=== PATIENT | female | born 1980 | race Caucasian/White ===

== ENCOUNTER 2019-12-30 06:30 | Emergency (ER) | payer OTHER ==
[~2019-12-30] VITALS: Ht 162.6 cm; Wt 81.7 kg
--- OUTSIDE RECORDS SUMMARY | ~2019-12-30 | XMS | Encounter Summary ---
Demographics + + + | Address | [address] | | | [place] [address] | + + + | Home Phone | | + + + | Preferred Language | Unknown | + + + | Marital Status | | + + + | Muslim Affiliation | Unknown | + + + | Race | White | + + + | Ethnic Group | Not or | + + + Author + + + | Author | [facility] | | | and [place] | + + + | Organization | [facility] | | | and [place] | + + + | Address | Unknown | + + + | Phone | Unavailable | + + + Support + + + + + | Name | Relationship | Address | Phone | + + + + + | Huan/Ibeth Bradshaw | ECON | [address] | | | | | [place], | | | | | [place] [address] | | + + + + + Care Team Providers + +------+ + | Care Rope Tier Name | Role | Phone | + +------+ + PCP | Unavailable | + +------+ + Encounter Details +--------+ + + + + | Date | Type | Department | Care Team | Description | +--------+ + + + + | 09/07/ | Hospital | [facility] | | | | 2001 - | Encounter | MED [facility] | | | | | | [facility] [address] | | | | 09/08/ | | [place], | | | | 2001 | | [place] [address] | | | | | | [phone] | | | +--------+ + + + + Social History + +-------+ +--------+------+ | Tobacco Use | Types | Packs/Day | Years | Date | | | | | Used | | + +-------+ +--------+------+ | Never Assessed | | | | | + +-------+ +--------+------+ + + + | Sex Assigned at | Date Recorded | | | | + + + | Not on file | | + + + documented as of this encounter Plan of Treatment Not on filedocumented as of this encounter Visit Diagnoses Not on filedocumented in this encounter"
--- OUTSIDE RECORDS SUMMARY | ~2019-12-30 | XMS | Encounter Summary ---
Demographics + + + | Address | [address] | | | [place] [address] | + + + | Home Phone | | + + + | Preferred Language | Unknown | + + + | Marital Status | | + + + | Catholic Affiliation | Unknown | + + + | Race | White | + + + | Ethnic Group | Not or | + + + Author + + + | Author | [facility] | | | and [place] | + + + | Organization | [facility] | | | and [...] [place], | | | | | [place] [address] | | + + + + + Care Team Providers + +------+ + | Care Wedding Coordinator Name | Role | Phone | + +------+ + | No, Physician | PCP | Unavailable | + +------+ + Encounter Details +--------+ + + + + | Date | Type | Department | Care Team | Description | +--------+ + + + + | 03/21/ | Hospital | [facility] | Simi Becerra | | | 2012 | Encounter | MED CTR EMERGENCY | DO [place] [address] | | | | | CENTER [address] | [place], [place] | | | | | [place], [place] | [address] | | | | | [address] | | | | | | [phone] | | | +--------+ + + + + Social History + +-------+ +--------+------+ | Tobacco Use | Types | Packs/Day | Years | Date | | | | | Used | | + +-------+ +--------+------+ | Never Smoker | | | | | + +-------+ +--------+------+ + + +---------+ + | Alcohol Use | Drinks/Week | oz/Week | Comments | + + +---------+ + | Not Asked | | | | + + +---------+ + + + + | Sex Assigned at | Date Recorded | | | | + + + | Not on file | | + + + documented as of this encounter Medications at Time of Discharge + + + +---------+--------+ + | Medication | Sig | Dispensed | Refills | Start | End Date | | | | | | Date | | + + + +---------+--------+ + | ARIPiprazole | Take 7.5 mg by mouth | | 0 | | | | (ABILIFY) 2 mg | Daily. | | | | | | tablet | | | | | | + + + +---------+--------+ + | cyclobenzaprine | Take 5 mg by mouth 3 | | 0 | | | | (FLEXERIL) 5 MG | times daily as | | | | 6 | | tablet | needed. | | | | | + + + +---------+--------+ + | | Take 1 tablet by | | 0 | | | | HYDROcodone-acetamin | mouth every 6 hours | | | | 6 | | ophen (NORCO) 5-325 | as needed. | | | | | | mg per tablet | | | | | | + + + +---------+--------+ + | Ketorolac | Take 1 tablet by | | 0 | | | | Tromethamine | mouth 4 times daily | | | | 6 | | (TORADOL ORAL PO) | as needed. | | | | | + + + +---------+--------+ + documented as of this encounter ED Notes Simi Becerra MD - 04/09/2013 2:39 PM [facility] [address] Patient Name: ASTRID SORENSEN Provider: Unit #: [id number] [id number] 1980 DATE: 03/21/2013 CHIEF COMPLAINT: The patient is a 32-year-old female that comes in with chief complaint of back pain. HISTORY OF PRESENT ILLNESS: The patient states that she slipped and fell in the shower tod , about 5 hours prior to arrival, and now she is having some low back pain. The patient states that it is a sharp type of pain. She has had no bowel dysfunction, no bladder dysfunction. There is no radiation into her l egs. She has no sensation or motor loss. She states that it is at the worst when she is laying flat, it feels a little bit better w hen she is standing, and it also hurts a little bit when she sits and goes to a standing po sition. REVIEW OF SYSTEMS: She is denying any trouble with urination or frequency of urination, no blood in the urine. She has had no headache, sore throat, cough, trouble breathing, or vicente st pain, and no abdominal type complaints. She had a history of some back pain about a year ago, and her x-rays at that time were negative. PAST MEDICAL HISTORY: The patient has a history of an ectopic , tubal ligation, a nd anxiety. MEDICATIONS: The patient currently is taking - 1. Ambien. 2. Effexor. 3. Aricept. ALLERGIES: SHE HAS NO KNOWN DRUG ALLERGIES. SOCIAL HISTORY: She denies any history of smoking, drugs, or alcohol use. PHYSICAL EXAMINATION VITAL SIGNS: The patient's vital signs are stable. Her temperature is 98.2, respiratory ra te 16, heart rate 70, blood pressure 101/74, and she is 96% on room air. GENERAL: The patient is alert. She appears to be in no acute distress. NECK: Normal on inspection. RESPIRATORY: She has no respiratory distress and breath sounds are normal. CARDIOVASCULAR: She is regular rate and rhythm. BACK: The patient is complaining of tenderness in the lumbar spine region, mostly in the paravertebrals. There is no bony point tenderness. She has a little bit of muscle spasm. Str aight leg raise is negative bilaterally. NEUROPSYCH: She is alert and oriented. Mood and affect within normal limits. She has no ap parent motor or sensory deficits. Her strength is 5/5 in the bilateral flexors and extensor s of lower extremities, and her reflexes are normal. EMERGENCY ROOM COURSE: She did have an L-spine x-ray that showed no acute process. She did receive a Dilaudid and Phenergan injection while here in the emergency department. DIAGNOSIS THE PATIENT IS DIAGNOSED WITH LUMBAR STRAIN. PLAN: She is given a prescription for some pain medication and muscle relaxers. The patien t should alternate ice and heat, and do gentle stretching exercises, and followup with her primary care provider. DICTATED BY: [place] Becerra DO Emergency Medicine JOB #: [id number] EXT JOB #:[id number] <<Signature on File>> Jefferson Wagner O106/22/12 1522 < documented in this encounter Plan of Treatment Not on filedocumented as of this encounter Procedures + +--------+ + + + | Procedure Name | Priori | Date/Time | Associated Diagnosis | Comments | | | ty | | | | + +--------+ + + + | XR LUMBAR SPINE 2 OR | Routin | 03/22/2013 | | Results for this | | 3 VW | e | 9:00 AM | | procedure are in the | | | | PST | | results section. | + +--------+ + + + documented in this encounter Results XR Lumbar Spine 2 or 3 Vw (03/22/2013 9:00 AM PST) + + | Specimen | + + | | + + + + + | Narrative | Performed At | + + + | [facility] | [facility] | | Department [address] [place] [address] | [facility] | | [ rep [address]] [ rep ct [facility] | | st zip] Signed | - IMAGING | | | | | Patient Name: ASTRID SORENSEN Physician: | | | WESLEY : 1980 Age: 32 Sex: F Unit #: [id number] | | | Exam Date: 03/21/13 Location: ER | | | Report #: [id number] Page: | | | %(RAD)RES..mtdd.print.filter("pg") of %(RAD) | | | RES..mtdd.print.filter("tpg") | | | | | | Accession Number: [id number] | | | LUMBAR SPINE CLINICAL HISTORY: FALL. | | | COMPARISON: December 14, 2011 FINDINGS: There are 5 | | | lumbar-type vertebral bodies. Alignment is normal. Vertebral body | | | heights are normally maintained. There is no fracture or focal | | | bony abnormality. No degenerative changes are seen. Adjacent | | | soft tissues are normal. IMPRESSION: 1. NEGATIVE | | | STUDY OF THE LUMBAR SPINE. Dictated Date/Time: | | | 03/22/2013 09:00 Transcribed Date/Time: 03/22/2013 09:41 | | | Gum Puller: <<Signature on File>> | | | | | | Rene Feldman MD03/22/13 1312 <Electronically signed by | | | Rene Feldman MD> Rene Feldman MD 03/22/13 | | | 0900 Gum Puller: Floyd Wrpffyqtzdbqd24/19/13 0941 | | | | | + + + + + + + + | Performing | Address | City/State[facility] | Phone Number | | Organization | | | | + + + + + | [facility] | [address] | [place] | [phone] | | [facility] | | [address] | | | - IMAGING | | | | + + + + + documented in this encounter Visit Diagnoses Not on filedocumented in this encounter
--- OUTSIDE RECORDS SUMMARY | ~2019-12-30 | XMS | Encounter Summary ---
Demographics + + + | Address | [address] | | | [place] [address] | + + + | Home Phone | | + + + | Preferred Language | Unknown | + + + | Marital Status | | + + + | Mu-Ism Affiliation | Unknown | + + + | Race | White | + + + | Ethnic Group | Not or | + + + Author + + + | Author | [facility] | | | and [place] | + + + | Organization | [facility] | | | and [...] [place], | | | | | [place] [address] | | + + + + + Care Team Providers + +------+ + | Care Web Site Manager Name | Role | Phone | + +------+ + | Fanta Jose | PCP | | + +------+ + Reason for Visit + + + | Reason | Comments | + + + | Arm Pain | Exam 4/ right arm pain x2 days | + + + Encounter Details +--------+---------+ + + + | Date | Type | Department | Care Team | Description | +--------+---------+ + + + | 12/28/ | Office | [facility] | Sathish, | Muscle spasms of | | 2020 | Visit | CARE [address] | [place] | neck (Primary Dx) | | | | [place], [place] | [address] | | | | | [address] | [place], [place] | | | | | [phone] | [phone] | | | | | | | | +--------+---------+ + + + Social History + +-------+ +--------+------+ | Tobacco Use | Types | Packs/Day | Years | Date | | | | | Used | | + +-------+ +--------+------+ | Never Smoker | | | | | + +-------+ +--------+------+ + +---+---+---+ | Smokeless Tobacco: | | | | | Never Used | | | | + +---+---+---+ + + +---------+ + | Alcohol Use | Drinks/Week | oz/Week | Comments | + + +---------+ + | No | | | | + + +---------+ + + + + | Sex Assigned at | Date Recorded | | | | + + + | Not on file | | + + + documented as of this encounter Last Filed Vital Signs + + + + + | Vital Sign | Reading | Time Taken | Comments | + + + + + | Blood Pressure | 116/69 | 12/29/2019 5:31 PM | | | | | PDT | | + + + + + | Pulse | 57 | 12/29/2019 5:31 PM | | | | | PDT | | + + + + + | Temperature | 36.8 C (98.2 F) | 12/29/2019 5:31 PM | | | | | PDT | | + + + + + | Respiratory Rate | 16 | 12/29/2019 5:31 PM | | | | | PDT | | + + + + + | Oxygen Saturation | 98% | 12/29/2019 5:31 PM | | | | | PDT | | + + + + + | Inhaled Oxygen | - | - | | | Concentration | | | | + + + + + | Weight | 83.1 kg (183 lb 3.2 | 12/29/2019 5:31 PM | | | | oz) | PDT | | + + + + + | Height | 162.6 cm (5' 4") | 12/29/2019 5:31 PM | | | | | PDT | | + + + + + | Body Mass Index | 31.45 | 12/29/2019 5:31 PM | | | | | PDT | | + + + + + documented in this encounter Patient Instructions Patient Instructions Kisha Bower ARNP - 12/29/2019 4:15 PM PDT Neck Spasm A spasm of the neck muscles can happen after a sudden awkward neck movement. Sleeping with your neck in a crooked position can also cause spasm. Some people respond to emotional stres s by tensing the muscles of their neck, shoulders, and upper back. If neck spasm lasts long enough, it can cause a headache. The treatment described below will usually help the pain to go away in 5 to 7 days. Pain th at continues may need further evaluation or other types of treatment such as physical therap y. Home care Rest and relax the muscles. Use a comfortable pillow that supports the head and keeps th e spine in a neutral position. The position of the head should not be tilted forward or back boyce. A rolled up towel may help for a custom fit. Some people find relief with heat. Heat can be applied with either a warm shower or bath or a moist towel heated in the microwave and massage. Others prefer cold packs. You can porter e an ice pack by filling a plastic bag that seals at the top with ice cubes or crushed ice a nd then wrapping it with a thin towel. Try both and use the method that feels best for 15 to 20 minutes, several times a day. Whether using ice or heat, be careful that you don't injure your skin. Never put ice dir ectly on the skin. Always wrap the ice in a towel or other type of cloth. This is very impor tant, especially in people with poor skin sensation. Try to reduce your stress level. Emotional stress can lead to neck muscle tension and ge t in the way of or delay the healing process. You may use zdhr-dos-plvhsmx pain medicine to control pain, unless another medicine was prescribed. If you have chronic liver or kidney disease or ever had a stomach ulcer or gastr ointestinal bleeding, talk with your healthcare provider before using these medicines. Follow-up care Follow up with your healthcare provider if your symptoms don't show signs of improvement af ter one week. Physical therapy or further tests may be needed. If X-rays, CT scans, or MRI scans were taken, you will be told of any new findings that may affect your care. Call 911 Call 911 if you have: Sudden weakness or numbness in one or both arms or legs Neck swelling, trouble with or painful swallowing Trouble breathing Chest pain When to seek medical advice Call your healthcare provider right away if any of these occur: Pain becomes worse or spreads into one or both arms or legs Increasing headache with nausea or vomiting Fever of 100.4F (38C) or higher, or as directed by your healthcare provider Jodee Wong last reviewed this educational content on 09/01/201719996673-2030 [employer]. [address] [place] [address], [place] [address]. All righ ts reserved. This information is not intended as a substitute for professional medical care. Always follow your healthcare professional's instructions. documented in this encounter Progress Notes Kisha Bower ARNP - 12/29/2019 4:15 PM PDTFormatting of this note might be d ifferent from the original. Subjective: Patient ID: Astrid Sorensen is a 39 y.o. female. Chief Complaint Patient presents with Arm Pain Exam 4/ right arm pain x2 days HPI Pt here for rt arm pain. Pt is of all prescription medications since May wanted to reset her body- PCP aware. Rt arm pain started 2 days ago. She works at [employer] in the [employer] and works the [employer], no more work then normal. Pt had this same pain once in the past in both arms and treate d with itz wraps in 2018 and gone until now. No neck pain or injuries. Pain feels like it is shooting up the arm from thumb and long finger into the shoulder blades. Pain level last ni ght 10/10-wakes her every couple hours last night and the night prior 2X. Pain level 6-7/10. Hot water helps. Pt has no N/T in thumb and LF only burning pain. N/T in 2nd, 4th and 5th f ingers when the burning occurs. Yesterday off and on and today continuous. Heat helps. Pt metzger s motrin and took 1200 mg once today, no help with pain. Ice isn't helping. No pain with mov ing hand and arm. Pt has weakness, can't write for more then 20 seconds because pain. Past Medical History: Diagnosis Date Anxiety Bipolar 1 disorder (HCC) Bipolar affective (HCC) Pilonidal abscess I PTSD (post-traumatic stress disorder) Past Surgical History: Procedure Laterality Date ECTOPIC SURGERY 2003 ECTOPIC SURGERY NASAL SEPTUM SURGERY NOSE SURGERY 2003 TUBAL LIGATION 2001 TUBAL LIGATION History reviewed. No pertinent family history. Social History Socioeconomic History Marital status: Spouse name: Not on file Number of children: Not on file Years of education: Not on file Highest education level: Not on file Tobacco Use Smoking status: Never Smoker Smokeless tobacco: Never Used Substance and Sexual Activity Alcohol use: No Drug use: No Comment: Drug use: No Current Outpatient Medications Medication Sig Dispense Refill ARIPiprazole (ABILIFY) 2 mg tablet Take 7.5 mg by mouth Daily. fluticasone (FLONASE) 50 mcg/nasal spray 1 spray by Nasal route Daily. HYDROcodone-acetaminophen (NORCO) 5-325 mg per tablet Take 1 tablet by mouth every 6 ho urs as needed. (Patient not taking: Reported on 12/29/2019.) 10 tablet 0 ibuprofen (ADVIL,MOTRIN) 600 MG tablet Take 600 mg by mouth every 6 hours as needed for Pain. Loratadine 10 MG CAPS Take by mouth. ondansetron (ZOFRAN ODT) 4 mg disintegrating tablet Take 1 tablet by mouth every 6 hour s as needed for Nausea. (Patient not taking: Reported on 12/29/2019.) 10 tablet 0 prazosin (MINIPRESS) 5 mg capsule Take 6 mg by mouth nightly. venlafaxine (EFFEXOR XR) 225 mg ER tablet Take 225 mg by mouth daily (with breakfast). No current facility-administered medications for this visit. Allergies No active allergies Intolerance No active intolerances/contraindications Review of Systems Constitutional: Negative for fever. Musculoskeletal: Positive for back pain. Negative for neck pain. Chronic low back pain stable. Neurological: Positive for tingling and sensory change. Negative for dizziness, weakness an d headaches. Objective: BP 116/69 | Pulse 57 | Temp 36.8 C (98.2 F) (Temporal) | Resp 16 | Ht 1.626 m (5' 4 ") | Wt 83.1 kg (183 lb 3.2 oz) | SpO2 98% | No | BMI 31.45 kg/m BP Readings from Last 3 Encounters: 12/29/19 116/69 04/19/19 90/60 07/31/15 129/70 Physical Exam Musculoskeletal: Comments: Right hand strength and arm strength intact. CSM intact. Motions intact With trigger point pressure on her right trap the numbness pain is relieved in her arm. Tr apezius tight bilaterally. Neck range of motion intact with tension but no pain. Get of loading for any increased numbness tingling or pain. No results found for this or any previous visit (from the past 24 hour(s)). Assessment/Plan: 1. Muscle spasms of neck Patient declined any medication. Patient may take motrin 400-800 mg orally every 6-8 hours as needed for pain. Take with fo od and stop if any GI upset occurs. Do not exceed 3,200mg in 24 hours. Heat and massage recommended. Physical therapy recommended and patient is interested [facility] she will need to see her PCP and have it ordered through them. Patient to avoid repetitive motions with her shoulders and neck the next 2 days. Ental range of motion of shoulder and neck to loosen the tension. doирина koch in this encounter Plan of Treatment Not on filedocumented as of this encounter Visit Diagnoses + + | Diagnosis | + + | Muscle spasms of neck - Primary Spasm of muscle | + + documented in this encounter
--- OUTSIDE RECORDS SUMMARY | ~2019-12-30 | XMS | Encounter Summary ---
Demographics + + + | Address | [address] | | | [place] [address] | + + + | Home Phone | | + + + | Preferred Language | Unknown | + + + | Marital Status | | + + + | Restorationism Affiliation | Unknown | + + + | Race | White | + + + | Ethnic Group | Not or | + + + Author + + + | Author | [facility] | | | and [place] | + + + | Organization | [facility] | | | [...] [place], | | | | | [place] [address] | | + + + + + Care Team Providers + +------+ + | Care Mill Tender Warm Up Name | Role | Phone | + +------+ + PCP | Unavailable | + +------+ + Encounter Details +--------+ + + + + | Date | Type | Department | Care Team | Description | +--------+ + + + + | 02/23/ | Hospital | [facility] | | | | 2002 | Encounter | MED CTR XRAY [address] | | | | | | [place] | | | | | | [place] [address] | | | | | | [phone] | | | +--------+ + + + [...]
--- OUTSIDE RECORDS SUMMARY | ~2019-12-30 | XMS | Encounter Summary ---
Demographics + + + | Address | [address] | | | [place] [address] | + + + | Home Phone | | + + + | Preferred Language | Unknown | + + + | Marital Status | | + + + | Restoration Affiliation | Unknown | + + + | Race | White | + + + | Ethnic Group | Not or | + + + Author + + + | Author | [facility] | | | and [place] | + + + | Organization | [facility] | | | and [place] | + + + | Address | Unknown | + + + | Phone | Unavailable | + + + Support + + + + + | Name | Relationship | Address | Phone | + + + + + | Huan/Ibeth Bradshaw | ECON | [address] | | | | | [place], | | | | | [place] [address] | | + + + + + Care Team Providers + +------+ + | Care Senior Auditor Name | Role | Phone | + +------+ + | No, Physician | PCP | Unavailable | + +------+ + Reason for Visit + + + | Reason | Comments | + + + | Follow-up | Rm 2 x [place] inj 10-20-12 follow up on back inj | + + + Encounter Details +--------+---------+ + + + | Date | Type | Department | Care Team | Description | +--------+---------+ + + + | 10/21/ | Office | [facility] | Dane, Mariela | Lumbosacral strain | | 2012 | Visit | CARE [address] | [place] [address] | (Primary Dx); Place | | | | [place], [place] | [address] | of occurrence, | | | | [address] | [place] [address] | industrial places | | | | [phone] | [phone] | and premises; | | | | | | Civilian activity | | | | | | done for income or | | | | | | pay; Injury caused | | | | | | by bending | +--------+---------+ + + + Social History [...] + + + | Blood Pressure | 90/70 | 10/21/2012 11:10 AM | | | | | PDT | | + + + + + | Pulse | 55 | 10/21/2012 11:10 AM | | | | | PDT | | + + + + + | Temperature | 36.9 C (98.5 F) | 10/21/2012 11:10 AM | | | | | PDT | | + + + + + | Respiratory Rate | 18 | 10/21/2012 11:10 AM | | | | | PDT | | + + + + + | Oxygen Saturation | 98% | 10/21/2012 11:10 AM | | | | | PDT | | + + + + + | Inhaled Oxygen | - | - | | | Concentration | | | | + + + + + | Weight | 79.4 kg (175 lb) | 10/21/2012 11:10 AM | | | | | PDT | | + + + + + | Height | 162.6 cm (5' 4") | 10/21/2012 11:10 AM | | | | | PDT | | + + + + + | Body Mass Index | 30.04 | 10/21/2012 11:10 AM | | | | | PDT | | + + + + + documented in this encounter Progress Mariela Frank MD - 10/21/2012 12:02 PM PDTSee dictation #[id number] cony d by Mariela Vela MD at 10/21/2012 12:03 PM PDTdocumented in this encounter Miscellaneous Notes Plan of Care - HILDA XAVIERAL - 10/21/2012 12:00 AM PDT documented in this encounter Plan of Treatment Not on filedocumented as of this encounter Visit Diagnoses + + | Diagnosis | + + | Lumbosacral strain - Primary Sprain of lumbosacral (joint) (ligament) | + + | Place of occurrence, industrial places and premises | + + | Civilian activity done for income or pay | + + | Injury caused by bending Other overexertion and strenuous and repetitive movements or | | loads | + + documented in this encounter
--- OUTSIDE RECORDS SUMMARY | ~2019-12-30 | XMS | Encounter Summary ---
Demographics + + + | Address | [address] | | | [place] [address] | + + + | Home Phone | | + + + | Preferred Language | Unknown | + + + | Marital Status | | + + + | Latter-Day Affiliation | Unknown | + + + | Race | White | + + + | Ethnic Group | Not or | + + + Author + + + | Author | [facility] | | | and [place] | + + + | Organization | [facility] | | | and [...] [place], | | | | | [place] [address] | | + + + + + Care Team Providers + +------+ + | Care Room Service Clerk Name | Role | Phone | + +------+ + | No, Physician | PCP | Unavailable | + +------+ + Encounter Details +--------+ + + + + | Date | Type | Department | Care Team | Description | +--------+ + + + + | 11/22/ | Hospital | [facility] | [place], | | | 2012 | Encounter | MED [facility] EM[facility] | Figueroa Richard MD [address] | | | | [address] [address] | [address] | | | | | [place], [place] | [place] [address] | | | | | [address] | [phone] | | | | | [phone] | | | +--------+ + + + [...] documented as of this encounter ED Notes Figueroa Cerrato MD - 11/22/2012 1:55 [place] [address] Patient Name: ASTRID SORENSEN Provider: Unit #: [id number] Location: ER : 1980 DATE: 11/22/2012 TIME SEEN: 1017 hours. CHIEF COMPLAINT: Depression. PRIMARY CARE PHYSICIAN: [facility]. HISTORY OF PRESENT ILLNESS: This is a 32-year-old female who was feeling depressed. She "t ried to play chicken with a tractor and a semi this morning". She states she is depressed. She has had some suicidal thoughts. She denies any ingestions of drugs or alcohol. Denies a ny overdoses. She is here with her mother who is a support to her and is seeking help. She was brought in by paramedics. PAST MEDICAL HISTORY: Back pain, PTSD, bipolar disorder, previous suicide attempts with on going depression. MEDICATIONS: Her current medications are: 1. Abilify. 2. Vitamin D. 3. Clonidine. 4. Ketorolac. 5. Perphenazine. 6. Effexor. ALLERGIES: NONE. REVIEW OF SYSTEMS: A 10-system review is negative except as noted above. SOCIAL HISTORY: Nonsmoker. PHYSICAL EXAMINATION VITAL SIGNS: Blood pressure 124/88, heart rate 94, respirations 18, temperature 98.1, O2 s aturation 96 %. GENERAL APPEARANCE: A well-appearing female, sitting up, speaking normally. HEENT: Atraumatic. Oropharynx is benign. NECK: Supple. CHEST: Clear to auscultation bilaterally without wheezes or crackles. CARDIOVASCULAR: Normal S1, S2. ABDOMEN: Soft, nontender. BACK: No flank pain. EXTREMITIES: Atraumatic. NEUROLOGIC: Alert and oriented. Gait and speech are normal. EMERGENCY DEPARTMENT COURSE: We did go ahead and send standard ER psych panel labs on her, which is completely unremarkable with negative alcohol, salicylate, and acetaminophen, neg ative drug screen, and negative . COMPUTATIONAL SCIENTIST came to evaluate the patient here and they h ave worked out a safety plan with her. The patient is going to go home with her mother. The y are going to actually work on getting a restraining order against her boyfriend who is ca using some stress. They have an appointment for mental health followup at the [facility] tomorrow. The patient will be with her mother between now and then. IMPRESSION: DEPRESSION WITH SUICIDAL IDEATION. DICTATED BY: Figueroa Cerrato MD Emergency Medicine JOB #: [id number] EXT JOB #:[id number] <<Signature on File>> Figueroa gong MD11/24/122107 <Electronically signed by Figueroa Cerrato MD> documented in t his encounter Plan of Treatment Not on filedocumented as of this encounter Procedures + +--------+ + + + | Procedure Name | Priori | Date/Time | Associated Diagnosis | Comments | | | ty | | | | + +--------+ + + + | CBC WITH | Routin | 11/22/2012 | | Results for this | | DIFFERENTIAL | e | 10:54 AM | | procedure are in the | | | | PDT | | results section. | + +--------+ + + + | TSH | Routin | 11/22/2012 | | Results for this | | | e | 10:54 AM | | procedure are in the | | | | PDT | | results section. | + +--------+ + + + | ALCOHOL | Routin | 11/22/2012 | | Results for this | | | e | 10:54 AM | | procedure are in the | | | | PDT | | results section. | + +--------+ + + + | ACETAMINOPHEN LEVEL | Routin | 11/22/2012 | | Results for this | | | e | 10:54 AM | | procedure are in the | | | | PDT | | results section. | + +--------+ + + + | SALICYLATE LEVEL | Routin | 11/22/2012 | | Results for this | | | e | 10:54 AM | | procedure are in the | | | | PDT | | results section. | + +--------+ + + + | COMPREHENSIVE | Routin | 11/22/2012 | | Results for this | | METABOLIC PANEL | e | 10:54 AM | | procedure are in the | | | | PDT | | results section. | + +--------+ + + + | DRUGS OF ABUSE, | Routin | 11/22/2012 | | Results for this | | SCREEN, URINE | e | 10:26 AM | | procedure are in the | | | | PDT | | results section. | + +--------+ + + + documented in this encounter Results CBC with Differential (11/22/2012 10:54 AM PDT) + + + + + + | Component | Value | Ref Range | Performed | Pathologist | | | | | At | Signature | + + + + + + | MANUAL | NO | | [facility] | | | DIFFERENTIA | | | [facility] | | | L ? | | | MEDICAL | | | | | | CENTER - | | | | | | LABORATORY | | + + + + + + | White Blood | 7.2 | 4.0 - 11.0 K/uL | [facility] | | | Cells | | | [facility] | | | | | | MEDICAL | | | | | | CENTER - | | | | | | LABORATORY | | + + + + + + | Red Blood | 4.85 | 3.70 - 5.20 | [facility] | | | Cells | | M/uL | [facility] | | | | | | MEDICAL | | | | | | CENTER - | | | | | | LABORATORY | | + + + + + + | Hemoglobin | 14.7 | 11.5 - 16.0 | [facility] | | | | | gm/dL | [facility] | | | | | | MEDICAL | | | | | | CENTER - | | | | | | LABORATORY | | + + + + + + | Hematocrit | 44.6 | 34.0 - 47.0 % | [facility] | | | | | | [facility] | | | | | | MEDICAL | | | | | | CENTER - | | | | | | LABORATORY | | + + + + + + | MCV | 91.9 | 83.0 - 101.0 fL | [facility] | | | | | | [facility] | | | | | | MEDICAL | | | | | | CENTER - | | | | | | LABORATORY | | + + + + + + | MCH | 30.2 | 28.0 - 35.0 pg | [facility] | | | | | | [facility] | | | | | | MEDICAL | | | | | | CENTER - | | | | | | LABORATORY | | + + + + + + | MCHC | 32.8 | 32.0 - 36.0 | [facility] | | | | | g/dL | [facility] | | | | | | MEDICAL | | | | | | CENTER - | | | | | | LABORATORY | | + + + + + + | RDW-CV | 12.9 | <15.0 % | [facility] | | | | | | [facility] | | | | | | MEDICAL | | | | | | CENTER - | | | | | | LABORATORY | | + + + + + + | Platelet | 235 | 140 - 440 K/uL | [facility] | | | Count | | | [facility] | | | | | | MEDICAL | | | | | | CENTER - | | | | | | LABORATORY | | + + + + + + | % | 69.7 | 45 - 75 % | [facility] | | | Neutrophils | | | [facility] | | | | | | MEDICAL | | | | | | CENTER - | | | | | | LABORATORY | | + + + + + + | % | 19.1 (L) | 20 - 45 % | [facility] | | | Lymphocytes | | | [facility] | | | | | | MEDICAL | | | | | | CENTER - | | | | | | LABORATORY | | + + + + + + | % Monocytes | 8.5 | 4 - 12 % | [facility] | | | | | | [facility] | | | | | | MEDICAL | | | | | | CENTER - | | | | | | LABORATORY | | + + + + + + | % | 1.5 | 0 - 5 % | [facility] | | | Eosinophils | | | [facility] | | | | | | MEDICAL | | | | | | CENTER - | | | | | | LABORATORY | | + + + + + + | % Basophils | 1.2 (H) | 0 - 1 % | [facility] | | | | | | [facility] | | | | | | MEDICAL | | | | | | CENTER - | | | | | | LABORATORY | | + + + + + + | Absolute | 5.0 | 1.5 - 6.6 K/uL | [facility] | | | Neutrophils | | | [facility] | | | | | | MEDICAL | | | | | | CENTER - | | | | | | LABORATORY | | + + + + + + | Absolute | 1.4 | 0.6 - 3.2 K/uL | [facility] | | | Lymphocytes | | | [facility] | | | | | | MEDICAL | | | | | | CENTER - | | | | | | LABORATORY | | + + + + + + | Absolute | 0.6 | 0.0 - 1.0 K/uL | [facility] | | | Monocytes | | | [facility] | | | | | | MEDICAL | | | | | | CENTER - | | | | | | LABORATORY | | + + + + + + | Absolute | 0.1 | 0.0 - 0.4 K/uL | [facility] | | | Eosinophils | | | [facility] | | | | | | MEDICAL | | | | | | CENTER - | | | | | | LABORATORY | | + + + + + + | Absolute | 0.1 | 0.0 - 0.1 K/uL | [facility] | | | Basophils | | | [facility] | | | | | | MEDICAL | | | | | | CENTER - | | | | | | LABORATORY | | + + + + + + + + | Specimen | + + | | + + + + + + + | Performing | Address | City/State/Zipcode | Phone Number | | Organization | | | | + + + + + | [facility] | [address] | [place], [place] | [phone] | | [facility] | | [address] | | | - LABORATORY | | | | + + + + + | [facility] | [address] | [place], [place] | | | [facility] | | [address] [place] [address] | | | - LABORATORY | | | | + + + + + TSH (11/22/2012 10:54 AM PDT) + + + + + + | Component | Value | Ref Range | Performed | Pathologist | | | | | At | Signature | + + + + + + | TSH | 1.24Comment: Testing | 0.34 - 5.60 | [facility] | | | | performed on the Cruz | uIU/mL | [facility] | | | | [place] [facility] | | MEDICAL | | | | Analyzer. | | CENTER - | | | | | | LABORATORY | | + + + + + + + + | Specimen | + + | | + + + + + + + | Performing | Address | City/State/Zipcode | Phone Number | | Organization | | | | + + + + + | [facility] | [address] | [place] | [phone] | | [facility] | | [address] | | | - LABORATORY | | | | + + + + + | [facility] | [address] | [place], [place] | | | [facility] | | [address], [facility] | | | - LABORATORY | | | | + + + + + Comprehensive Metabolic Panel (11/22/2012 10:54 AM PDT) + + + + + + | Component | Value | Ref Range | Performed | Pathologist | | | | | At | Signature | + + + + + + | Glucose | 93 | 70 - 109 mg/dL | [facility] | | | | | | [facility] | | | | | | MEDICAL | | | | | | CENTER - | | | | | | LABORATORY | | + + + + + + | Calcium | 9.0 | 8.3 - 10.5 | [facility] | | | | | mg/dL | [facility] | | | | | | MEDICAL | | | | | | CENTER - | | | | | | LABORATORY | | + + + + + + | Alkaline | 60 | 40 - 110 IU/L | [facility] | | | Phosphatase | | | [facility] | | | | | | MEDICAL | | | | | | CENTER - | | | | | | LABORATORY | | + + + + + + | AST | 24 | 10 - 42 IU/L | [facility] | | | | | | [facility] | | | | | | MEDICAL | | | | | | CENTER - | | | | | | LABORATORY | | + + + + + + | ALT | 27 | 6 - 45 IU/L | [facility] | | | | | | [facility] | | | | | | MEDICAL | | | | | | CENTER - | | | | | | LABORATORY | | + + + + + + | Bilirubin | 0.7 | 0.2 - 1.0 mg/dL | [facility] | | | Total | | | [facility] | | | | | | MEDICAL | | | | | | CENTER - | | | | | | LABORATORY | | + + + + + + | Total | 7.4 | 6.0 - 7.8 gm/dL | [facility] | | | Protein | | | [facility] | | | | | | MEDICAL | | | | | | CENTER - | | | | | | LABORATORY | | + + + + + + | Albumin | 4.1 | 3.2 - 5.0 gm/dL | [facility] | | | | | | [facility] | | | | | | MEDICAL | | | | | | CENTER - | | | | | | LABORATORY | | + + + + + + | BUN | 17 | 7 - 18 mg/dL | [facility] | | | | | | [facility] | | | | | | MEDICAL | | | | | | CENTER - | | | | | | LABORATORY | | + + + + + + | Creatinine | 0.89 | 0.60 - 1.30 | [facility] | | | | | mg/dL | [facility] | | | | | | MEDICAL | | | | | | CENTER - | | | | | | LABORATORY | | + + + + + + | Estimated | >60Comment: For | >60 mL/min/A | [facility] | | | GFR | -Americans, | | [facility] | | | | please multiply the | | MEDICAL | | | | result by 1.210 | | CENTER - | | | | This is an estimated | | LABORATORY | | | | GFR and is based on a | | | | | | standard adult | | | | | | body mass (A=1.73m2) and | | | | | | serum creatinine | | | | + + + + + + | BUN/Creatin | 19.1 | 12 - 20 | [facility] | | | ine Ratio | | | [facility] | | | | | | MEDICAL | | | | | | CENTER - | | | | | | LABORATORY | | + + + + + + | Na | 138 | 136 - 149 mEq/L | [facility] | | | | | | [facility] | | | | | | MEDICAL | | | | | | CENTER - | | | | | | LABORATORY | | + + + + + + | K | 4.4 | 3.5 - 5.1 mEq/l | [facility] | | | | | | [facility] | | | | | | MEDICAL | | | | | | CENTER - | | | | | | LABORATORY | | + + + + + + | Cl | 102 | 98 - 109 mEq/l | [facility] | | | | | | [facility] | | | | | | MEDICAL | | | | | | CENTER - | | | | | | LABORATORY | | + + + + + + | CO2 | 26 | 24 - 31 mEq/L | [facility] | | | | | | [facility] | | | | | | MEDICAL | | | | | | CENTER - | | | | | | LABORATORY | | + + + + + + | Anion Gap | 14.4 | 6.0 - 17.0 | [facility] | | | | | | [facility] | | | | | | MEDICAL | | | | | | CENTER - | | | | | | LABORATORY | | + + + + + + + + | Specimen | + + | | + + + + + + + | Performing | Address | City/State/Zipcode | Phone Number | | Organization | | | | + + + + + | [facility] | [address] | [place], [place] | [phone] | | [facility] | | [address] | | | - LABORATORY | | | | + + + + + | [facility] | [address] | [place], [place] | | | [facility] | | [id number] [place] [address] | | | - LABORATORY | | | | + + + + + Acetaminophen Level (11/22/2012 10:54 AM PDT) + +-------+ + + + | Component | Value | Ref Range | Performed | Pathologist | | | | | At | Signature | + +-------+ + + + | Acetaminoph | <10 | 10 - 30 ug/mL | [facility] | | | en Level | | | [facility] | | | | | | MEDICAL | | | | | | CENTER - | | | | | | LABORATORY | | + +-------+ + + + + + | Specimen | + + | | + + + + + + + | Performing | Address | City/State/Zipcode | Phone Number | | Organization | | | | + + + + + | [facility] | [address] | [place] | [phone] | | [facility] | | [address] | | | - LABORATORY | | | | + + + + + | [facility] | [address] | [place] | | | [facility] | | [address] | | | - LABORATORY | | | | + + + + + Salicylate Level (11/22/2012 10:54 AM PDT) + +-------+ + + + | Component | Value | Ref Range | Performed | Pathologist | | | | | At | Signature | + +-------+ + + + | Salicylate | <4 | <30 mg/dL | [facility] | | | Level | | | [facility] | | | | | | MEDICAL | | | | | | CENTER - | | | | | | LABORATORY | | + +-------+ + + + + + | Specimen | + + | | + + + + + + + | Performing | Address | City/State/Zipcode | Phone Number | | Organization | | | | + + + + + | [facility] | [address] | [place], [place] | [phone] | | [facility] | | [address] | | | - LABORATORY | | | | + + + + + | [facility] | [address] | [place], [place] | | | [facility] | | [address], [facility] | | | - LABORATORY | | | | + + + + + Ethanol (11/22/2012 10:54 AM PDT) + +-------+ + + + | Component | Value | Ref Range | Performed | Pathologist | | | | | At | Signature | + +-------+ + + + | ALCOHOL, | <5 | mg/dL | [facility] | | | SERUM/PLASM | | | [facility] | | | A | | | MEDICAL | | | | | | CENTER - | | | | | | LABORATORY | | + +-------+ + + + + + | Specimen | + + | | + + + + + + + | Performing | Address | City/State/Zipcode | Phone Number | | Organization | | | | + + + + + | [facility] | [address] | [place], [place] | [phone] | | [facility] | | [address] | | | - LABORATORY | | | | + + + + + | [facility] | [address] | [place], [place] | | | [facility] | | [address] | | | - LABORATORY | | | | + + + + + Drugs of Abuse, Screen, Urine (11/22/2012 10:26 AM PDT) + + + + + + | Component | Value | Ref Range | Performed | Pathologist | | | | | At | Signature | + + + + + + | Amphetamine | NEGATIVE | NEGATIVE | [facility] | | | Screen, | | | [facility] | | | Urine | | | MEDICAL | | | | | | CENTER - | | | | | | LABORATORY | | + + + + + + | Barbiturate | NEGATIVE | NEGATIVE | [facility] | | | s Screen, | | | [facility] | | | Urine | | | MEDICAL | | | | | | CENTER - | | | | | | LABORATORY | | + + + + + + | Benzodiazep | NEGATIVE | NEGATIVE | [facility] | | | jeni | | | [facility] | | | Screen, | | | MEDICAL | | | Urine | | | CENTER - | | | | | | LABORATORY | | + + + + + + | Cannabinoid | NEGATIVE | NEGATIVE | [facility] | | | s Screen, | | | [facility] | | | Urine | | | MEDICAL | | | | | | CENTER - | | | | | | LABORATORY | | + + + + + + | Cocaine | NEGATIVE | NEGATIVE | [facility] | | | Metabolite | | | [facility] | | | | | | MEDICAL | | | | | | CENTER - | | | | | | LABORATORY | | + + + + + + | Methadone | NEGATIVE | NEGATIVE | [facility] | | | Screen, | | | [facility] | | | Urine | | | MEDICAL | | | | | | CENTER - | | | | | | LABORATORY | | + + + + + + | Opiates | NEGATIVEComment: The | NEGATIVE | [facility] | | | Screen, | following drugs or | | [facility] | | | Urine | classes were screened | | MEDICAL | | | | for by immunoassay at | | CENTER - | | | | these cutoff | | LABORATORY | | | | concentrations: | | | | | | Amphetamines | | | | | | 1000 ng/mL | | | | | | Barbiturates | | | | | | 200 ng/mL | | | | | | Benzodiazepines | | | | | | 200 ng/mL | | | | | | Cannabinoids | | | | | | 50 ng/mL | | | | | | Cocaine Metabolite | | | | | | 300 ng/mL | | | | | | Methadone | | | | | | 300 ng/mL | | | | | | Opiates | | | | | | 300 ng/mL | | | | | | This emergency urinary | | | | | | drug screen will not | | | | | | exclude drugs at | | | | | | levels below the | | | | | | cut-off point for | | | | | | screening, and may not | | | | | | correlate with current | | | | | | blood levels. These | | | | | | results should not be | | | | | | used for non-medical | | | | | | purposes. For important | | | | | | clinical decisions, | | | | | | confirmation by separate | | | | | | assay should be done. | | | | | | | | | | + + + + + + + + | Specimen | + + | | + + + + + + + | Performing | Address | City/State/Zipcode | Phone Number | | Organization | | | | + + + + + | [facility] | [address] | [place] | [phone] | | [facility] | | [address] | | | - LABORATORY | | | | + + + + + | [facility] | [address] | [place] | | | [facility] | | [address] | | | - LABORATORY | | | | + + + + + documented in this encounter Visit Diagnoses Not on filedocumented in this encounter
--- OUTSIDE RECORDS SUMMARY | ~2019-12-30 | XMS | Encounter Summary ---
Demographics + + + | Address | [address] | | | [place] [address] | + + + | Home Phone | | + + + | Preferred Language | Unknown | + + + | Marital Status | | + + + | Alevism Affiliation | Unknown | + + + | Race | White | + + + | Ethnic Group | Not or | + + + Author + + + | Author | [facility] | | | and [place] | + + + | Organization | [facility] | | | [...] [place], | | | | | [place] [address] | | + + + + + Care Team Providers + +------+ + | Care Cellars Supervisor Name | Role | Phone | + +------+ + PCP | Unavailable | + +------+ + Encounter Details +--------+ + + + + | Date | Type | Department | Care Team | Description | +--------+ + + + + | 04/20/ | Hospital | [facility] | | | | 2000 | Encounter | MED CTR GENERIC OP | | | | | | CONV DEPT [address] | | | | | | [place], | | | | | | [place] [address] | | | | | | [phone] | | | +--------+ + + + [...]
--- OUTSIDE RECORDS SUMMARY | ~2019-12-30 | XMS | Encounter Summary ---
Demographics + + + | Address | [address] | | | [place] [address] | + + + | Home Phone | | + + + | Preferred Language | Unknown | + + + | Marital Status | | + + + | Synagogue Affiliation | Unknown | + + + | Race | White | + + + | Ethnic Group | Not or | + + + Author + + + | Author | [facility] | | | and [place] | + + + | Organization | [facility] | | | [...] [place], | | | | | [place] [address] | | + + + + + Care Team Providers + +------+ + | Care Heart Specialist Name | Role | Phone | + +------+ + PCP | Unavailable | + +------+ + Encounter Details +--------+ + + + + | Date | Type | Department | Care Team | Description | +--------+ + + + + | 12/22/ | Hospital | [facility] | Cindi Dalal | | | 2005 - | Encounter | [facility] | MD Nayan [address] | | | | HLTH ADULT [address] [place], [place] | | | 12/23/ | | [address] [place], [place] | [address] | | | 2005 | | [address] | | | | | | [phone] | Dora Kuhn, | | | | | | [address] | | | | | | [address] [place], | | | | | | [place] [address] | | | | | | [phone] | | | | | | | | +--------+ + + + [...]
--- OUTSIDE RECORDS SUMMARY | ~2019-12-30 | XMS | Encounter Summary ---
Demographics + + + | Address | [address] | | | [place] [address] | + + + | Home Phone | | + + + | Preferred Language | Unknown | + + + | Marital Status | | + + + | Yazdanism Affiliation | Unknown | + + + | Race | White | + + + | Ethnic Group | Not or | + + + Author + + + | Author | [facility] | | | and [place] | + + + | Organization | [facility] | | [...] [place], | | | | | [place] [address] | | + + + + + Care Team Providers + +------+ + | Care Senior Systems Software Engineer Name | Role | Phone | + +------+ + | Fanta Jose | PCP | | + +------+ + Reason for Visit + +--------+ + | Reason | Onset | Comments | | | Date | | + +--------+ + | Discharge Without | 05/06/ | | | Visit | 2020 | | + +--------+ + Encounter Details +--------+ + + + + | Date | Type | Department | Care Team | Description | +--------+ + + + + | 05/06/ | Telephone | [facility] | Maribel Badillo, OT | Discharge Without | | 2020 | | [facility] | [address] | Visit | | | | [address] | [place] | | | | | [place] | [address] | | | | | [address] | | | | | | [phone] | | | +--------+ + + + [...] + + documented as of this encounter Miscellaneous Notes Telephone Encounter - [place] Ocampo - 05/06/2019 11:52 AM PSTPatient is being hospital ized at this time and would like a discharge. Patient will get new orders if neededMelissa ballesteros signed by [place] Ocampo at 05/06/2019 11:54 AM PSTdocumented in this encounter Plan of Treatment Not on filedocumented as of this encounter Visit Diagnoses Not on filedocumented in this encounter"
--- OUTSIDE RECORDS SUMMARY | ~2019-12-30 | XMS | Encounter Summary ---
Demographics + + + | Address | [address] | | | [place] [address] | + + + | Home Phone | | + + + | Preferred Language | Unknown | + + + | Marital Status | | + + + | Gnosticism Affiliation | Unknown | + + + | Race | White | + + + | Ethnic Group | Not or | + + + Author + + + | Author | [facility] | | | and [place] | + + + | Organization | [facility] | | [...] [place], | | | | | [place] [address] | | + + + + + Care Team Providers + +------+ + | Care Hat Trimmer Name | Role | Phone | + +------+ + | No, Physician | PCP | Unavailable | + +------+ + Encounter Details +--------+ + + + + | Date | Type | Department | Care Team | Description | +--------+ + + + + | 10/20/ | Hospital | [facility] | Marcel Walsh, | | | 2012 | Encounter | MED CTR EMERGENCY | [address] | | | | | CENTER [address] | [place] | | | | | [place] | [address] | | | | | [address] | | | | | | [phone] | | | +--------+ + + + [...] + + documented as of this encounter ED Notes Marcel Walsh MD - 10/20/2012 2:42 [place] [address] Patient Name: ASTRID SORENSEN Provider: Unit #: [id number] Location: : 1980 DATE: 10/20/2012 HISTORY OF PRESENT ILLNESS: This is a 32-year-old woman complaining of low back pain after she bent over to pick something up at work. There was no significant trauma, but she compl ains of pain in her low back that radiates to her left thigh. No numbness or weakness in he r extremities. No bowel or bladder incontinence and no saddle anesthesia. She has had a his tory of a back strain about 9 months ago that resolved with conservative therapy. She compl ains of 7/10 pain currently. She has had no surgeries on her back. ALLERGIES: NO ALLERGIES. She has some mental health issues. MEDICATIONS 1. She takes Abilify. 2. Trilafon. 3. Effexor. PAST MEDICAL HISTORY: Otherwise healthy. She does not smoke. REVIEW OF SYSTEMS A complete review of systems is negative except as detailed in the HPI above. PHYSICAL EXAMINATION VITAL SIGNS: Blood pressure is 125/79, heart rate 67, respirations 16, afebrile, 96% on ro om air. GENERAL: No distress. HEENT: Pupils equal and reactive to light and accommodation. Extraocular movements intact. Oral mucosa moist. NECK: Supple, nontender. CARDIAC: Normal S1, S2. LUNGS: Sounds clear to auscultation bilaterally. ABDOMEN: Soft, nontender, nondistended. Normal bowel sounds. BACK: There is tenderness in the L3-L5 region both spinous processes as well as paraspinal tenderness. The left side is worse than the right. The patient has no saddle anesthesia. S he has a negative straight leg raise bilaterally. Her radiculopathy symptoms are worse on t he left. NEUROLOGIC: Cranial nerves 2 through 12 are intact. She has normal sensation, motor, and s trength in all 4 extremities. Alert and oriented x3. SKIN: Without rashes or lesions. ASSESSMENT AND PLAN 1. THIS IS A 32-YEAR-OLD WITH A BACK STRAIN AND SCIATICA, LEFT SIDED, POSSIBLY DUE TO A BU LGED DISK. She was given Flexeril, hydrocodone and ibuprofen. Will have her continue these medication s as an outpatient and follow up with Occupational Health as this was an on-the-job injury as an outpatient and return if any new concerning symptoms. DICTATED BY: Marcel Walsh M.D. Emergency Medicine JOB #: [id number] EXT JOB #:[id number] <<Signature on File>> Marcel Walsh MD0 10/23/12 1543 < documented in this en counter Plan of Treatment Not on filedocumented as of this encounter Visit Diagnoses Not on filedocumented in this encounter"
--- OUTSIDE RECORDS SUMMARY | ~2019-12-30 | XMS | Encounter Summary ---
Demographics + + + | Address | [address] | | | [place] [address] | + + + | Home Phone | | + + + | Preferred Language | Unknown | + + + | Marital Status | | + + + | Adventist Affiliation | Unknown | + + + | Race | White | + + + | Ethnic Group | Not or | + + + Author + + + | Author | [facility] | | | and [place] | + + + | Organization | [facility] | | | and [place] | + + + | Address | Unknown | + + + | Phone | Unavailable | + + + Support + + + + + | Name | Relationship | Address | Phone | + + + + + | Huan/Ibethdevon Bradshaw | ECON | [address] | | | | | [place], | | | | | [place] [address] | | + + + + + Care Team Providers + +------+ + | Care Automotive Design Drafter Name | Role | Phone | + +------+ + PCP | Unavailable | + +------+ + Encounter Details +--------+ + + + + | Date | Type | Department | Care Team | Description | +--------+ + + + + | 12/24/ | Hospital | [facility] | | | | 2001 | Encounter | MED CTR EMERGENCY | | | | | | [place] [address] | | | | | | [place] | | | | | | [address] | | | | | | [phone] | | | +--------+ + + + [...]
--- OUTSIDE RECORDS SUMMARY | ~2019-12-30 | XMS | Encounter Summary ---
Demographics + + + | Address | [address] | | | [place] [address] | + + + | Home Phone | | + + + | Preferred Language | Unknown | + + + | Marital Status | | + + + | Mandaeism Affiliation | Unknown | + + + | Race | White | + + + | Ethnic Group | Not or | + + + Author + + + | Author | [facility] | | | and [place] | + + + | Organization | [facility] | | | and [...] [place], | | | | | [place] [address] | | + + + + + Care Team Providers + +------+ + | Care County Extension Agent Name | Role | Phone | + +------+ + | No, Physician | PCP | Unavailable | + +------+ + Reason for Visit + + + | Reason | Comments | + + + | Back Pain | | + + + Encounter Details +--------+---------+ + + + | Date | Type | Department | Care Team | Description | +--------+---------+ + + + | 11/03/ | Office | [facility] | Malika Nichols | Lumbar strain | | 2012 | Visit | OCCUPATIONAL HEALTH | Dev Polk MD | (Primary Dx); | | | | [place] [address] | [address] | Lumbosacral | | | | [address] [place] | [place] | radiculopathy at L4 | | | | [place] | [address] | - bilateral; | | | | [address] | | Civilian activity | | | | [phone] | | done for income or | | | | | | pay; Place of | | | | | | occurrence, | | | | | | industrial places | | | | | | and premises | +--------+---------+ + + + Social History [...] + + + | Blood Pressure | 100/75 | 11/03/2012 3:13 PM | | | | | PDT | | + + + + + | Pulse | 62 | 11/03/2012 3:13 PM | | | | | PDT | | + + + + + | Temperature | 36.6 C (97.8 F) | 11/03/2012 3:13 PM | | | | | PDT | | + + + + + | Respiratory Rate | 18 | 11/03/2012 3:13 PM | | | | | PDT | | + + + + + | Oxygen Saturation | - | - | | + + + + + | Inhaled Oxygen | - | - | | | Concentration | | | | + + + + + | Weight | 78.2 kg (172 lb 4.8 | 11/03/2012 3:13 PM | | | | oz) | PDT | | + + + + + | Height | 162.6 cm (5' 4") | 11/03/2012 3:13 PM | | | | | PDT | | + + + + + | Body Mass Index | 29.58 | 11/03/2012 3:13 PM | | | | | PDT | | + + + + + documented in this encounter Patient Instructions Patient Instructions Malika Nichols Jr., MD - 11/03/2012 3:48 PM PDTTake medicati ons as prescribed See Dr. Vela in 2 weeks Continue with light duty documented in this encounter Progress Notes Malika Nichols Jr., MD - 11/03/2012 3:40 PM PDTBACKGROUND INFORMATION EMPLOYER: Afshin Conway GUARANTOR: LINDSAY DATE OF INJURY: 10/20/2012 CLAIM #[id number]. Astrid Sorensen Presents for followup of a back injury of 10/20/12. 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 She had had a similar proble m a year earlier which resolved spontaneously. She's had no bowel bladder incontinence. Sh e has noted numbness in both medial calves as well enough as well as a feeling of weakness. She has pain that radiates into both anterior thigh areas from the back. This is worse wit h cough or sneeze. She has been at light duty Physical exam: No acute distress Back: She has tenderness percussion of the lumbosacral junction, sacroiliac joints are nont ирина, she has pain with torsion in either direction but side bending is fairly well-maintai layton, straight leg raising causes pain in her back, deep tendon reflexes are symmetrical, mot or is intact, sensory reveals decreased sensation in both L4 distributions, Diagnosis: Possible L4 radiculopathy bilaterally from minimal injury suggesting the possibi lity of an acute disc herniation of the L3-4 area Plan: Continue light duty duty work A trial of a Medrol Dosepak as well as Robaxin Followup in [address] Vela Not pass MMI Permanent impairment uncertain as of this date documented in this encounter Miscellaneous Notes Plan of Care - [facility] - 11/03/2012 12:00 AM PDT lan [facility] Care [facility] - 11/03/2012 12:00 AM PDTElect ronically signed by Chuck Quinones at 12/01/2012 12:14 PM PDTdocumented in this encounter Plan of Treatment Not on filedocumented as of this encounter Visit Diagnoses + + | Diagnosis | + + | Lumbar strain - Primary Sprain of lumbar region | + + | Lumbosacral radiculopathy at L4 - bilateral Thoracic or lumbosacral neuritis or | | radiculitis, unspecified | + + | Civilian activity done for income or pay | + + | Place of occurrence, industrial places and premises | + + documented in this encounter
--- OUTSIDE RECORDS SUMMARY | ~2019-12-30 | XMS | Encounter Summary ---
Demographics + + + | Address | [address] | | | [place] [address] | + + + | Home Phone | | + + + | Preferred Language | Unknown | + + + | Marital Status | | + + + | Jehovah'S Witness Affiliation | Unknown | + + + | Race | White | + + + | Ethnic Group | Not or | + + + Author + + + | Author | [facility] | | | and [place] | + + + | Organization | [facility] | | | and [place] | + + + | Address | Unknown | + + + | Phone | Unavailable | + + + Support + + + + + | Name | Relationship | Address | Phone | + + + + + | Huan/Ibethdevon Bradshaw | ECON | [address] | | | | | [place], | | | | | [place] [address] | | + + + + + Care Team Providers + +------+ + | Care Director Of Grants Name | Role | Phone | + +------+ + PCP | Unavailable | + +------+ + Encounter Details +--------+ + + + + | Date | Type | Department | Care Team | Description | +--------+ + + + + | 03/09/ | Hospital | [facility] | Domingo Allen, | | | 2009 | Encounter | MED CTR EMERGENCY | [place] [address] | | | | | [place] [address] | [place] | | | | | [place] | [address] | | | | | [address] | | | | | | [phone] | | | +--------+ + + + [...]
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
--- OUTSIDE RECORDS SUMMARY | ~2019-12-30 | XMS | Encounter Summary ---
Demographics + + + | Address | [address] | | | [place] [address] | + + + | Home Phone | | + + + | Preferred Language | Unknown | + + + | Marital Status | | + + + | Sabianism Affiliation | Unknown | + + + | Race | White | + + + | Ethnic Group | Not or | + + + Author + + + | Author | [facility] | | | and [place] | + + + | Organization | [facility] | | [...] [place], | | | | | [place] [address] | | + + + + + Care Team Providers + +------+ + | Care Health Care Sanitary Technician Name | Role | Phone | + +------+ + PCP | Unavailable | + +------+ + Encounter Details +--------+ + + + + | Date | Type | Department | Care Team | Description | +--------+ + + + + | 08/02/ | Hospital | [facility] | | | | 2002 | Encounter | MED CTR EMERGENCY | | | | | | [place] [address] | | | | | | [place] | | | | | | [address] | | | | | | [phone] | | | +--------+ + + + [...]
--- OUTSIDE RECORDS SUMMARY | ~2019-12-30 | XMS | Encounter Summary ---
Demographics + + + | Address | [address] | | | [place] [address] | + + + | Home Phone | | + + + | Preferred Language | Unknown | + + + | Marital Status | | + + + | Jewish Affiliation | Unknown | + + + [...] [place], | | | | | [place] [address] | | + + + + + Care Team Providers + +------+ + | Care Shirt Finisher Name | Role | Phone | + +------+ + | No, Physician | PCP | Unavailable | + +------+ + Reason for Visit + + + | Reason | Comments | + + + | Back Injury | rm 4 | + + + | Hip Injury | | + + + Encounter Details +--------+---------+ + + + | Date | Type | Department | Care Team | Description | +--------+---------+ + + + | 10/20/ | Office | [facility] | DaneMariela | Back injury (Primary | | 2012 | Visit | CARE [address] | [place] [address] | Dx) | | | | [place], [place] | [address] [facility] | | | | | [address] | [place] [address] | | | | | [phone] | [phone] | | | | | | | [...] + + + | Blood Pressure | 106/63 | 10/20/2012 2:01 PM | | | | | PDT | | + + + + + | Pulse | 60 | 10/20/2012 2:01 PM | | | | | PDT | | + + + + + | Temperature | 36.3 C (97.3 F) | 10/20/2012 2:01 PM | | | | | PDT | | + + + + + | Respiratory Rate | 18 | 10/20/2012 2:01 PM | | | | | PDT | | + + + + + | Oxygen Saturation | - | - | | + + + + + | Inhaled Oxygen | - | - | | | Concentration | | | | + + + + + | Weight | 79.8 kg (175 lb 14.4 | 10/20/2012 2:01 PM | | | | oz) | PDT | | + + + + + | Height | - | - | | + + + + + | Body Mass Index | - | - | | + + + + + documented in this encounter Progress Clair Rene - 10/20/2012 2:28 PM PDTPatient was seen at ER and was suppose to follow up here tomorrow. Patient will return tomorrow.Electronically signed by Clair Cabezas at 013 2:29 PM PDTdocumented in this encounter Miscellaneous Notes Plan of Care - HILDA APONTE - 10/20/2012 12:00 AM PDT documented in this encounter Plan of Treatment Not on filedocumented as of this encounter Visit Diagnoses + + | Diagnosis | + + | Back injury - Primary Other injury of other sites of trunk | + + documented in this encounter"
--- OUTSIDE RECORDS SUMMARY | ~2019-12-30 | XMS | Encounter Summary ---
Demographics + + + | Address | [address] | | | [place] [address] | + + + | Home Phone | | + + + | Preferred Language | Unknown | + + + | Marital Status | | + + + | Yazidi Affiliation | Unknown | + + + | Race | White | + + + | Ethnic Group | Not or | + + + Author + + + | Author | [facility] | | | and [place] | + + + | Organization | [facility] | | | and [place] | + + + | Address | Unknown | + + + | Phone | Unavailable | + + + Support + + + + + | Name | Relationship | Address | Phone | + + + + + | Huan/bIeth Bradshaw | ECON | [address] | | | | | [place], | | | | | [place] [address] | | + + + + + Care Team Providers + +------+ + | Care Aviculturist Name | Role | Phone | + +------+ + PCP | Unavailable | + +------+ + Encounter Details +--------+ + + + + | Date | Type | Department | Care Team | Description | +--------+ + + + + | 10/02/ | Hospital | [facility] | | | | 2008 | Encounter | MED CTR XRAY [address] | | | | | | [place] | | | | | | [place] [address] | | | | | | [phone] | | | +--------+ + + + [...]
--- OUTSIDE RECORDS SUMMARY | ~2019-12-30 | XMS | Encounter Summary ---
Demographics + + + | Address | [address] | | | [place] [address] | + + + | Home Phone | | + + + | Preferred Language | Unknown | + + + | Marital Status | | + + + | Christian Affiliation | Unknown | + + + | Race | White | + + + | Ethnic Group | Not or | + + + Author + + + | Author | [facility] | | | and [place] | + + + | Organization | [facility] | | [...] [place], | | | | | [place] [address] | | + + + + + Care Team Providers + +------+ + | Care Pavilion Cutter Name | Role | Phone | + +------+ + PCP | Unavailable | + +------+ + Encounter Details +--------+ + + + + | Date | Type | Department | Care Team | Description | +--------+ + + + + | 02/09/ | Hospital | [facility] | | | | 2000 | Encounter | MED CTR GENERIC OP | | | | | | CONV DEPT [address] | | | | | | [place], | | | | | | [place] [address] | | | | | | [phone] | | | +--------+ + + + [...]
--- OUTSIDE RECORDS SUMMARY | ~2019-12-30 | XMS | Encounter Summary ---
Demographics + + + | Address | [address] | | | [place] [address] | + + + | Home Phone | | + + + | Preferred Language | Unknown | + + + | Marital Status | | + + + | Baptist Affiliation | Unknown | + + + | Race | White | + + + | Ethnic Group | Not or | + + + Author + + + | Author | [facility] | | | and [place] | + + + | Organization | [facility] | | | [...] [place], | | | | | [place] [address] | | + + + + + Care Team Providers + +------+ + | Care Terra Cotta Setter Name | Role | Phone | + +------+ + PCP | Unavailable | + +------+ + Encounter Details +--------+ + + + + | Date | Type | Department | Care Team | Description | +--------+ + + + + | 02/05/ | Hospital | [facility] | | | | 1998 - | Encounter | MED CTR GENERIC OP | | | | | | CONV DEPT [address] | | | | 05/03/ | | [place], | | | | 1998 | | [place] [address] | | | | | | [phone] | | | +--------+ + + + [...]
--- OUTSIDE RECORDS SUMMARY | ~2019-12-30 | XMS | Encounter Summary ---
Demographics + + + | Address | [address] | | | [place] [address] | + + + | Home Phone | | + + + | Preferred Language | Unknown | + + + | Marital Status | | + + + | Jainism Affiliation | Unknown | + + + [...] [place], | | | | | [place] [address] | | + + + + + Care Team Providers + +------+ + | Care Screw Cutter Name | Role | Phone | + +------+ + | Fanta Jose | PCP | | + +------+ + Reason for Visit + + + | Reason | Comments | + + + | Discharge Without | | | Visit | | + + + Encounter Details +--------+ + + + + | Date | Type | Department | Care Team | Description | +--------+ + + + + | 05/09/ | Documentati | [facility] | Mariela Garza, | Discharge Without | | 2020 | on | [facility] | OT [address] | Visit | | | | [address] | [place] | | | | | [place] | [address] | | | | | [address] | | | | | | [phone] | | | +--------+ + + + [...] + + documented as of this encounter Progress Notes Mariela Garza OT - 05/09/2019 5:38 PM PSTFormatting of this note might be different fr om the original. [facility] [address] [facility] [address] Occupational Therapy Discharge Note This discharge is associated with the evaluation completed on 04/19/19. Date: 05/09/2019 Patient Information Patient Name: Astrid Sorensen Date of : 1980 Age: 39 y.o. Encounter Diagnoses Code Name Primary? R29.898 Weakness of left hand M79.645 Pain in finger of left hand M25.642 Stiffness of finger joint of left hand Date of Onset: 03/28/2019 Referring Provider: GONZALEZ Herrera Total Number of Visits Completed: 1 Total Cancellations: 0 Total No Shows: 1 Astrid Sorensen was seen for initial Eval onlyPatient cancelled therapy secondary to a change i n medical status. She was admitted to the hospital and requests d/c from tx at this time. At this time we find it necessary to discharge this patient from therapy services. She will obtain additional order for tx as she is able. The patients initial evaluation will serve as objective status for purposes of discharge. Electronically signed by: Mariela Garza OT, 05/09/2019 5:39 PM Patient Name: Astrid Sorensen/: 1980/ documented in this e ncounter Plan of Treatment Not on filedocumented as of this encounter Visit Diagnoses + + | Diagnosis | + + | Weakness of left hand Muscle weakness (generalized) | + + | Pain in finger of left hand Pain in limb | + + | Stiffness of finger joint of left hand | + + documented in this encounter"
--- OUTSIDE RECORDS SUMMARY | ~2019-12-30 | XMS | Encounter Summary ---
Demographics + + + | Address | [address] | | | [place] [address] | + + + | Home Phone | | + + + | Preferred Language | Unknown | + + + | Marital Status | | + + + | Restorationist Affiliation | Unknown | + + + | Race | White | + + + | Ethnic Group | Not or | + + + Author + + + | Author | [facility] | | | and [place] | + + + | Organization | [facility] | | | and [...] [place], | | | | | [place] [address] | | + + + + + Care Team Providers + +------+ + | Care Outreach Professional Name | Role | Phone | + +------+ + | No, Physician | PCP | Unavailable | + +------+ + Encounter Details +--------+ + + + + | Date | Type | Department | Care Team | Description | +--------+ + + + + | 12/08/ | Hospital | [facility] | Evin Armstrong, | | | 2012 | Encounter | MED CTR EMERGENCY | MD [address] | | | | | [place] [address] | [facility] [place] | | | | | [place], [place] | [place] [address] | | | | | [address] | [phone] | | | | | [phone] | | | +--------+ + + + [...] documented as of this encounter ED Notes Evin Armstrong MD - 12/09/2012 1:23 PM PDT [place], [place] [id number] Patient Name: ASTRID SORENSEN Provider: Unit #: [id number] Location: [facility] #: [id number] : 1980 DATE: 12/08/2012 IDENTIFICATION: A 32-year-old female. CHIEF COMPLAINT: Abdominal pain. HISTORY OF PRESENT ILLNESS: This patient presented to the emergency department for evaluat ion. She has been having abdominal pain in particular over the last 2 days. It is kind of t he left side of her abdomen, just to the left of the umbilicus. She has been having some na usea, bloating. She has had intermittent diarrhea and constipation. No fevers. No injuries to her abdomen. No similar episodes with all these symptoms, although the pain is reminisce nt to her when she had a tubal that occurred after her tubal ligation in 2009. So , she was particularly worried about that. She presents to the emergency department at this time for evaluation. PAST MEDICAL HISTORY: She has had an ectopic . She had tubal ligation. She is kayli ated for anxiety. MEDICATIONS 1. Abilify. 2. Cholecalciferol. 3. Clonidine. 4. Coffee extract. 5. Ketorolac. 6. Perphenazine. 7. Venlafaxine. ALLERGIES: NONE REPORTED. SOCIAL HISTORY: She is giving her own history. Nonsmoker. PRIMARY CARE: At the [facility]. REVIEW OF SYSTEMS GENERAL: There is no fever. HEAD: No complaint. EYES: No complaint. EARS: No complaint. THROAT: No sore throat. HEART: No chest pain or palpitations. RESPIRATORY: No coughing, wheezing or sputum production. GASTROINTESTINAL: She has abdominal pain and nausea. She has had alternating diarrhea and constipation. GENITOURINARY: No burning with urination, frequency, urgency. MUSCULOSKELETAL: No complaint. DERMATOLOGY: No skin lesions. NEUROLOGIC: No seizure or stroke-like symptoms. PHYSICAL EXAMINATION VITAL SIGNS: Blood pressure 114/85, pulse 65, respirations 18, temperature 98.2, saturatio n 97% on room air. GENERAL: Well-nourished 32-year-old female. HEENT: No obvious trauma. Pupils are equal. Conjunctivae pink. Mucous membranes moist. Nos e and throat clear. NECK: Supple. No adenopathy. HEART: Regular rate and rhythm. LUNGS: Clear to auscultation. ABDOMEN: Soft. There is some mild tenderness to palpation in the left periumbilical area. No peritoneal signs. Bowel sounds are positive. EXTREMITIES: Warm and well perfused without edema. Good range of motion. No joint swelling or deformity. SKIN: No rash. NEUROLOGIC: She is alert, interactive, good muscle tone and strength. Speech is clear. Gai t is normal. EMERGENCY DEPARTMENT COURSE: The patient was seen and examined shortly after arriving in [facility] emergency department. History and physical obtained. Vital signs were noted. CBC, compre hensive metabolic profile, lipase and urine samples were obtained. Urine hCG is negative. U rine dip is negative. CBC, comprehensive metabolic profile, and lipase, all came back unrem arkable. She is hungry. She is eating chips in the room, drinking fluids without trouble. T here are no ketones in the urine. Her abdominal exam has no guarding or rebound at all. I h ave reassured her. I do think that this is intestinal-type pathology, that follow up with [facility] primary care physician is indicated. She has no fever and a [facility] IMPRESSION: LEFT-SIDED ABDOMINAL PAIN, CONSISTENT WITH A GASTROINTESTINAL ETIOLOGY, SUSPECT IRRITABLE BOWEL VERSUS SPASTIC COLON. PLAN: The patient will be discharged home in unchanged condition. I am going to have her t ry some . She needs to rest, stay well hydrated, and follow up with her primary car e provider. DICTATED BY: Evin Armstrong MD Emergency Medicine JOB #: [id number] EXT JOB #:[id number] <<Signature on File>> Evin Armstrong MD04/15 0545 <Electronically signed by Evin Armstrong MD> documented in thi s encounter Plan of Treatment Not on filedocumented as of this encounter Procedures + +--------+ + + + | Procedure Name | Priori | Date/Time | Associated Diagnosis | Comments | | | ty | | | | + +--------+ + + + | CBC WITH | Routin | 12/08/2012 | | Results for this | | DIFFERENTIAL | e | 4:23 PM | | procedure are in the | | | | PDT | | results section. | + +--------+ + + + | LIPASE | Routin | 12/08/2012 | | Results for this | | | e | 4:23 PM | | procedure are in the | | | | PDT | | results section. | + +--------+ + + + | COMPREHENSIVE | Routin | 12/08/2012 | | Results for this | | METABOLIC PANEL | e | 4:23 PM | | procedure are in the | | | | PDT | | results section. | + +--------+ + + + documented in this encounter Results CBC with Differential (12/08/2012 4:23 PM PDT) + +---------+ + + + | Component | Value | Ref Range | Performed | Pathologist | | | | | At | Signature | + +---------+ + + + | MANUAL | NO | | [facility] | | | [facility] | | | [facility] | | | [facility] ? | | | [facility] | | | | | | [facility] - | | | | | | LABORATORY | | + +---------+ + + + | White Blood | 9.4 | 4.0 - 11.0 K/uL | [facility] | | | Cells | | | [facility] | | | | | | [facility] | | | | | | CENTER - | | | | | | LABORATORY | | + +---------+ + + + | Red Blood | 4.99 | 3.70 - 5.20 | [facility] | | | Cells | | M/uL | [facility] | | | | | | [facility] | | | | | | C[facility] - | | | | | | LABORATORY | | + +---------+ + + + | Hemoglobin | 15.0 | 11.5 - 16.0 | [facility] | | | | | gm/dL | [facility] | | | | | | [facility]ICAL | | | | | | CENTER - | | | | | | LABORATORY | | + +---------+ + + + | Hematocrit | 45.8 | 34.0 - 47.0 % | [facility] | | | | | | [facility] | | | | | | [facility] | | | | | | C[facility] - | | | | | | LABORATORY | | + +---------+ + + + | MCV | 91.7 | 83.0 - 101.0 fL | [facility] | | | | | | [facility] | | | | | | [facility] | | | | | | C[facility] - | | | | | | LABORATORY | | + +---------+ + + + | MCH | 30.0 | 28.0 - 35.0 pg | [facility] | | | | | | [facility] | | | | | | [facility] | | | | | | C[facility] - | | | | | | LABORATORY | | + +---------+ + + + | MCHC | 32.7 | 32.0 - 36.0 | [facility] | | | | | g/dL | [facility] | | | | | | [facility] | | | | | | CENTER - | | | | | | LABORATORY | | + +---------+ + + + | RDW-CV | 13.2 | <15.0 % | [facility] | | | | | | [facility] | | | | | | [facility] | | | | | | CENTER - | | | | | | LABORATORY | | + +---------+ + + + | Platelet | 303 | 140 - 440 K/uL | [facility] | | | Count | | | [facility] | | | | | | MEDICAL | | | | | | CENTER - | | | | | | LABORATORY | | + +---------+ + + + | % | 68.5 | 45 - 75 % | [facility] | | | Neutrophils | | | [facility] | | | | | | MEDICAL | | | | | | CENTER - | | | | | | LABORATORY | | + +---------+ + + + | % | 20.2 | 20 - 45 % | [facility] | | | Lymphocytes | | | [facility] | | | | | | MEDICAL | | | | | | CENTER - | | | | | | LABORATORY | | + +---------+ + + + | % Monocytes | 7.6 | 4 - 12 % | [facility] | | | | | | [facility] | | | | | | [facility]ICAL | | | | | | CENTER - | | | | | | LABORATORY | | + +---------+ + + + | % | 2.6 | 0 - 5 % | [facility] | | | Eosinophils | | | [facility] | | | | | | MEDICAL | | | | | | CENTER - | | | | | | LABORATORY | | + +---------+ + + + | % Basophils | 1.1 (H) | 0 - 1 % | [facility] | | | | | | [facility] | | | | | | MEDICAL | | | | | | CENTER - | | | | | | LABORATORY | | + +---------+ + + + | Absolute | 6.4 | 1.5 - 6.6 K/uL | [facility] | | | Neutrophils | | | [facility] | | | | | | MEDICAL | | | | | | CENTER - | | | | | | LABORATORY | | + +---------+ + + + | Absolute | 1.9 | 0.6 - 3.2 K/uL | [facility] | | | Lymphocytes | | | [facility] | | | | | | MEDICAL | | | | | | CENTER - | | | | | | LABORATORY | | + +---------+ + + + | Absolute | 0.7 | 0.0 - 1.0 K/uL | [facility] | | | Monocytes | | | [facility] | | | | | | MEDICAL | | | | | | CENTER - | | | | | | LABORATORY | | + +---------+ + + + | Absolute | 0.2 | 0.0 - 0.4 K/uL | [facility] | | | Eosinophils | | | [facility] | | | | | | MEDICAL | | | | | | CENTER - | | | | | | LABORATORY | | + +---------+ + + + | Absolute | 0.1 | 0.0 - 0.1 K/uL | [facility] | | | Basophils | | | [facility] | | | | | | MEDICAL | | | | | | CENTER - | | | | | | LABORATORY | | + +---------+ + + + + + | Specimen | + + | | + + + + + + + | Performing | Address | City/State/Zipcode | Phone Number | | Organization | | | | + + + + + | [facility] | [address] | [place] | [phone] | | [facility] | | [address] | | | - LABORATORY | | | | + + + + + | [facility] | [address] | [place], [place] | | | [facility] | | [address], [facility] | | | - LABORATORY | | | | + + + + + Comprehensive Metabolic Panel (12/08/2012 4:23 PM PDT) + + + + + + | Component | Value | Ref Range | Performed | Pathologist | | | | | At | Signature | + + + + + + | Glucose | 84 | 70 - 109 mg/dL | [facility] | | | | | | [facility] | | | | | | [facility]ICAL | | | | | | CENTER - | | | | | | LABORATORY | | + + + + + + | Calcium | 9.2 | 8.3 - 10.5 | [facility] | | | | | mg/dL | [facility] | | | | | | MEDICAL | | | | | | CENTER - | | | | | | LABORATORY | | + + + + + + | Alkaline | 61 | 40 - 110 IU/L | [facility] [...] + + + + | ALT | 26 | 6 - 45 IU/L | [facility] | | | | | | [facility] | | | | | | MEDICAL | | | | | | CENTER - | | | | | | LABORATORY | | + + + + + + | Bilirubin | 0.5 | 0.2 - 1.0 mg/dL | [facility] [...] + + + + | Albumin | 4.2 | 3.2 - 5.0 gm/dL | [facility] | | | | | | [facility] | | | | | | MEDICAL | | | | | | CENTER - | | | | | | LABORATORY | | + + + + + + | BUN | 10 | 7 - 18 mg/dL | [facility] | | | | | | [facility] | | | | | | [facility] | | | | | | CENTER - | | | | | | LABORATORY | | + + + + + + | Creatinine | 0.78 | 0.60 - 1.30 | [facility] | | | | | mg/dL | [facility] | | | | | | MEDICAL | | | | | | CENTER - | | | | | | LABORATORY | | + + + + + + | Estimated | >60Comment: For | >60 mL/min/A | [facility] | | | GFR | -Americans, | | [facility] | | | | please multiply the [...] + + + + | BUN/Creatin | 12.8 | 12 - 20 | [facility] | | | ine Ratio | | | [facility] | | | | | | MEDICAL | | | | | | CENTER - | | | | | | LABORATORY | | + + + + + + | Na | 136 | 136 - 149 mEq/L | [facility] | | | | | | [facility] | | | | | | MEDICAL | | | | | | CENTER - | | | | | | LABORATORY | | + + + + + + | K | 3.7 | 3.5 - 5.1 mEq/l | [facility] | | | | | | [facility] | | | | | | MEDICAL | | | | | | CENTER - | | | | | | LABORATORY | | + + + + + + | Cl | 101 | 98 - 109 mEq/l | [facility] [...] + + + | Anion Gap | 12.7 | 6.0 - 17.0 | [facility] | [...] + | [facility] | [address] | [place], [place] | [phone] | | [facility] | | [address] | | | - LABORATORY | | | | + + + + + | [facility] | [address] | [place], [place] | | | [facility] | | [address], [facility] | | | - LABORATORY | | | | + + + + + Lipase (12/08/2012 4:23 PM PDT) + +-------+ + + + | Component | Value | Ref Range | Performed | Pathologist | | | | | At | Signature | + +-------+ + + + | Lipase | 28 | 0 - 60 U/L | [facility] | | | | | | [facility] [...] + + | [facility] | [address] | [place] | [phone] | | [facility] | | [address] | | | - LABORATORY | | | | + + + + + | [facility] | [address] | [place] | | | [facility] | | [address] | | | - LABORATORY | | | | + + + + + documented in this encounter Visit Diagnoses Not on filedocumented in this encounter"
--- OUTSIDE RECORDS SUMMARY | ~2019-12-30 | XMS | Encounter Summary ---
Demographics + + + | Address | [address] | | | [place] [address] | + + + | Home Phone [...] [place], | | | | | [place] [address] | | + + + + + Care Team Providers + +------+ + | Care Supervisory Clerk Name | Role | Phone | + +------+ + | Duarte Jason MD | PCP | Unavailable | + +------+ + Encounter Details +--------+ + + + + | Date | Type | Department | Care Team | Description | +--------+ + + + + | 04/03/ | Emergency | [facility] | Tr Vega | Admission for wound | | 2016 | | [facility] | MD Evin [address] | check of abscess | | | | EM[facility]GENCY CENTER | [address] [place], [place] | | | | | [address] | [address] | | | | | [place], [place] | [phone] | | | | | [address] | | | | | | [phone] | | | +--------+ + + + [...] + + + | Blood Pressure | 129/76 | 08/05/2015 9:54 PM | | | | | PDT | | + + + + + | Pulse | 82 | 08/05/2015 9:54 PM | | | | | PDT | | + + + + + | Temperature | 36.2 C (97.1 F) | 08/05/2015 9:54 PM | | | | | PDT | | + + + + + | Respiratory Rate | 16 | 08/05/2015 9:54 PM | | | | | PDT | | + + + + + | Oxygen Saturation | - | - | | + + + + + | Inhaled Oxygen | - | - | | | Concentration | | | | + + + + + | Weight | 85.1 kg (187 lb 9.8 | 08/05/2015 9:54 PM | | | | oz) | PDT | | + + + + + | Height | - | - | | + + + + + | Body Mass Index | 32.2 | 07/31/2015 7:42 PM | | | | | PDT | | + + + + + documented in this encounter Medications at Time of Discharge + + + +---------+ + + | Medication | Sig | Dispensed | Refills | Start | End Date | | | | | | Date | | + + + +---------+ + + | ARIPiprazole | Take 7.5 mg by mouth | | 0 | | | | (ABILIFY) 2 mg | Daily. | | | | | | tablet | | | | | | + + + +---------+ + + | fluticasone | 1 spray by Nasal | | 0 | | | | (FLONASE) 50 | route Daily. | | | | | | mcg/nasal spray | | | | | | + + + +---------+ + + | | Take 1 tablet by | 10 | 0 | 07/31/19 | | | HYDROcodone-acetamin | mouth every 6 hours | tablet | | 16 | | | ophen (NORCO) 5-325 | as needed. | | | | | | mg per tablet | | | | | | + + + +---------+ + + | ibuprofen | Take 600 mg by mouth | | 0 | | | | (ADVIL,MOTRIN) 600 | every 6 hours as | | | | | | MG tablet | needed for Pain. | | | | | + + + +---------+ + + | Loratadine 10 MG | Take by mouth. | | 0 | | | | CAPS | | | | | | + + + +---------+ + + | ondansetron | Take 1 tablet by | 10 | 0 | 07/31/19 | | | (ZOFRAN ODT) 4 mg | mouth every 6 hours | tablet | | 16 | | | disintegrating | as needed for | | | | | | tablet | Nausea. | | | | | + + + +---------+ + + | prazosin | Take 6 mg by mouth | | 0 | | | | (MINIPRESS) 5 mg | nightly. | | | | | | capsule | | | | | | + + + +---------+ + + | venlafaxine | Take 225 mg by mouth | | 0 | | | | (EFFEXOR XR) 225 mg | daily (with | | | | | | ER tablet | breakfast). | | | | | + + + +---------+ + + | cephalexin | Take 1,000 mg by | | 0 | | | | (KEFLEX) 250 mg | mouth 2 times daily. | | | | 0 | | capsule | | | | | | + + + +---------+ + + | cephalexin | Take 1 capsule by | 21 | 0 | 07/31/19 | | | (KEFLEX) 500 mg | mouth 3 times daily | capsule | | 16 | 6 | | capsule | for 7 days. | | | | | + + + +---------+ + + | | Take 1 tablet by | | 0 | | | | sulfamethoxazole-tri | mouth 2 times daily. | | | | 0 | | methoprim (BACTRIM | | | | | | | DS) 800-160 mg per | | | | | | | tablet | | | | | | + + + +---------+ + + | | Take 1 tablet by | 14 | 0 | 07/31/19 | | | sulfamethoxazole-tri | mouth 2 times daily | tablet | | 16 | 6 | | methoprim (BACTRIM | for 7 days. | | | | | | DS) 800-160 mg per | | | | | | | tablet | | | | | | + + + +---------+ + + documented as of this encounter ED Notes Conversion Transaction, Provider Unknown - 08/05/2015 10:12 PM PDTFormatting of this note m ight be different from the original. ED Notes by Anca Hand RN at 08/05/152211 Author: Anca Hand RN Service: (none) Author Type: Registered Nurse Filed: 08/05/152212 Date of Service: 08/05/152211 Status: Signed Last Picker: Anca Hand RN (Registered Nurse) Dr. Vega at for wound check. Please refer to his assessment. Anca Hand RN 08/05/152212 oTr wilkerson MD - 08/05/2015 10:09 PM PDTFormatting of this note might be different from th e original. ED Provider Notes by Tr Vega MD at 08/05/152208 Author: Tr Vega MD Service: -Emergency Author Type: Physician Filed: 08/05/152212 Date of Service: 08/05/152208 Status: Signed Last Picker: Tr Vega MD (Physician) Procedures Additional Documentation Procedures [facility] Department of Emergency Medicine No flowsheet data found. History of Present Illness Patient Identification Astrid Sorensen is a 35 y.o. female. Patient information was obtained from patient and spouse/partner. History/Exam limitations: none. Patient presented to the Emergency Department by: Car Chief Complaint Chief Complaint Patient presents with Wound Check The patient presents for recheck after drain placed to pilonidal abscess. Original intervention: Drain placed at [facility] about five days ago Problems since original evaluation: Doing well until tonight when pt was driving [place] and felt fluid coming from the wound The severity of the patient s discomfort is reported to be mild. The patient reports th e following associated symptoms: none. Pt denies fever, chills, redness, swelling, problems with pump/drain. PCP: No primary care provider on file. Past Medical History Diagnosis Date Bipolar affective (HCC) Past Surgical History Procedure Laterality Date Tubal ligation Ectopic surgery Nasal septum surgery Prior to Admission medications Not on File No Known Allergies History Social History Marital Status: N/A Spouse Name: N/A Number of Children: N/A Years of Education: N/A Occupational History Not on file. Social History Main Topics Smoking status: Never Smoker Smokeless tobacco: Not on file Alcohol Use: No Drug Use: No Sexual Activity: Not on file Other Topics Concern Not on file Social History Narrative No narrative on file History reviewed. No pertinent family history. Review of Systems Constitutional: Negative for: recent illness Eyes: Negative for: vision changes Throat: Negative for: dental injury Cardiovascular/Respiratory: Negative for: chest pain, shortness of breath Gastrointestinal: Negative for: abdominal pain, vomiting, diarrhea Genitourinary: Negative for: hematuria, urinary problems Musculoskeletal: Negative for injury Skin: As above Neuro and psych: Negative for: fainting Endocrine/Heme/Lymph: Negative for: swollen lymph nodes All other review of systems negative except as mentioned. Physical Exam BP 129/76 mmHg | Pulse 82 | Temp(Src) 97.1 F (36.2 C) (Tympanic) | Resp 16 | Wt 85.1 kg (187 lb 9.8 oz) | SpO2 100% | LMP (Approximate) Pulse Oximetry interpretation: Normal VS: Normal. Afebrile. General: Alert, in no apparent distress Eyes: Normal inspection, pupils equal and round, non-icteric ENT: Ears normal Nose normal Neck: Normal inspection. Cardiovascular: Normal rate, rhythm Respiratory: No respiratory distress. Abdomen: Soft, non-tender, non-distended No guarding or rebound Back: No vertebral point tenderness. No gross step-off. There is a drain in the pilonidal area and some evidence of recent bloody discharge but n o fluctuance or erythema or induration. Upper Extrem: normal Lower Extrem: normal Skin: Color normal Warm and dry No rash, else as above Neuro: No motor deficit No sensory deficit Medical Decision Making and Emergency Department Course ED Department Course Benign exam. Pt likely had loculation that was not being drained that reached the surface. No interventions recommended. Records Reviewed Old medical records.. No prior ED visits in [employer] EMR. Laboratory Evaluation Labs Reviewed - No data to display Radiology and EKG Evaluation Imaging Results None ED Diagnosis Final diagnosis Encounter for wound check of abscess Disposition: ED Disposition Discharge Condition at discharge: Good Follow-up Information Follow up With Details Comments Contact [facility] Emergency Department As needed [address] [facility] [address] [facility] [place] Go to As needed [address] [place] [address] Discharge Medications: New Prescriptions No new medications Tr Vega MD 08/05/152212 documented in thi s encounter Plan of Treatment Not on filedocumented as of this encounter Visit Diagnoses + + | Diagnosis | + + | Admission for wound check of abscess Encounter for other specified aftercare | + + documented in this encounter"
--- OUTSIDE RECORDS SUMMARY | ~2019-12-30 | XMS | Encounter Summary ---
Demographics + + + | Address | [address] | | | [place] [address] | + + + | Home Phone | | + + + | Preferred Language | Unknown | + + + | Marital Status | | + + + | Sikhism Affiliation | Unknown | + + + | Race | White | + + + | Ethnic Group | Not or | + + + Author + + + | Author | [facility] | | | and [place] | + + + | Organization | [facility] [...] [place], | | | | | [place] [address] | | + + + + + Care Team Providers + +------+ + | Care Jigger Machine Operator Name | Role | Phone | + +------+ + PCP | Unavailable | + +------+ + Encounter Details +--------+ + + + + | Date | Type | Department | Care Team | Description | +--------+ + + + + | 02/14/ | Hospital | [facility] | Jorge A Crump, | | | 1999 - | Encounter | [facility] | [id number] | | | | | [facility] [address] | [address] | | | 02/15/ | | [place], | [place] [address] | | | 1999 | | [place] [address] | [phone] | | | | | [phone] | | | +--------+ + + + [...]
--- OUTSIDE RECORDS SUMMARY | ~2019-12-30 | XMS | Clinical Summary ---
Demographics + + + | Address | [address] [facility] [address] | | | [place] [address] | + + + | Home Phone | | + + + | Preferred Language | Unknown | + + + | Marital Status | | + + + | Bahai Affiliation | Unknown | + + + | Race | White | + + + | Ethnic Group | Not or | + + + Author + + + | Author | [facility] | | | and [place] | + + + | Organization | [facility] | | | [...] [place], | | | | | [place] [address] | | + + + + + Care Team Providers + +------+ + | Care Horticulture Worker Name | Role | Phone | + +------+ + | Fanta Jose | PCP | | + +------+ + Allergies No Known Allergies Medications + + + +---------+------+------+-------+ | Medication | Sig | Dispensed | Refills | Star | End | Statu | | | | | | t | Date | s | | | | | | Date | | | + + + +---------+------+------+-------+ | ARIPiprazole | Take 7.5 mg by mouth | | 0 | | | Activ | | (ABILIFY) 2 mg | Daily. | | | | | e | | tablet | | | | | | | + + + +---------+------+------+-------+ | venlafaxine | Take 225 mg by mouth | | 0 | | | Activ | | (EFFEXOR XR) 225 mg | daily (with | | | | | e | | ER tablet | breakfast). | | | | | | + + + +---------+------+------+-------+ | prazosin | Take 6 mg by mouth | | 0 | | | Activ | | (MINIPRESS) 5 mg | nightly. | | | | | e | | capsule | | | | | | | + + + +---------+------+------+-------+ | fluticasone | 1 spray by Nasal | | 0 | | | Activ | | (FLONASE) 50 | route Daily. | | | | | e | | mcg/nasal spray | | | | | | | + + + +---------+------+------+-------+ | Loratadine 10 MG | Take by mouth. | | 0 | | | Activ | | CAPS | | | | | | e | + + + +---------+------+------+-------+ | ibuprofen | Take 600 mg by mouth | | 0 | | | Activ | | (ADVIL,MOTRIN) 600 | every 6 hours as | | | | | e | | MG tablet | needed for Pain. | | | | | | + + + +---------+------+------+-------+ | | Take 1 tablet by | 10 | 0 | 03/2 | | Activ | | HYDROcodone-acetamin | mouth every 6 hours | tablet | | 9/20 | | e | | ophen (NORCO) 5-325 | as needed. | | | 16 | | | | mg per tablet | | | | | | | + + + +---------+------+------+-------+ +---+ + | | Additional | | | InformationPatient | | | not taking. Reported | | | on 12/29/2019 5:31 | | | PM | +---+ + + + +--------+---+------+---+-------+ | ondansetron | Take 1 tablet by | 10 | 0 | 03/2 | | Activ | | (ZOFRAN ODT) 4 mg | mouth every 6 hours | tablet | | 9/20 | | e | | disintegrating | as needed for | | | 16 | | | | tablet | Nausea. | | | | | | + + +--------+---+------+---+-------+ +---+ + | | Additional | | | InformationPatient | | | not taking. Reported | | | on 12/29/2019 5:31 | | | PM | +---+ + + + +---+---+---+------+-------+ | cephalexin | Take 1,000 mg by | | 0 | | 08/2 | Disco | | (KEFLEX) 250 mg | mouth 2 times daily. | | | | 720 | ntinu | | capsule | | | | | 20 | ed | | | | | | | | (Ther | | | | | | | | apy | | | | | | | | compl | | | | | | | | eted) | + + +---+---+---+------+-------+ | | Take 1 tablet by | | 0 | | 08/2 | Disco | | sulfamethoxazole-tri | mouth 2 times daily. | | | | 7/20 | ntinu | | methoprim (BACTRIM | | | | | 20 | ed | | DS) 800-160 mg per | | | | | | (Ther | | tablet | | | | | | apy | | | | | | | | compl | | | | | | | | eted) | + + +---+---+---+------+-------+ Active Problems + + + | Problem | Noted Date | + + + | Bipolar 2 disorder | 12/29/2019 | + + + | Borderline personality disorder | 12/29/2019 | + + + | Chronic post-traumatic stress disorder (PTSD) | 12/29/2019 | + + + | Stimulant abuse | 12/29/2019 | + + + | Weakness of left hand | 04/19/2019 | + + + | Pain in finger of left hand | 04/19/2019 | + + + | Stiffness of finger joint of left hand | 04/19/2019 | + + + Encounters +--------+---------+ + + + | Date | Type | Specialty | Care Team | Description | +--------+---------+ + + + | 12/28/ | Office | Immediate Care | Sathish, | Muscle spasms of | | 2020 | Visit | | LUIS DANIEL Perry | neck (Primary Dx) | +--------+---------+ + + + from Last 3 Months Social History + +-------+ +--------+------+ | Tobacco [...] on file | | + + + Last Filed Vital Signs + + + [...] | | + + + + + Plan of Treatment + + + + + | Health Maintenance | Due Date | Last | Comments | | | | Done | | + + + + + | Hepatitis C | | | | | Screening | 9 | | | + + + + + | Med Mgmt: HBA1C | | | | | | 9 | | | + + + + + | Med Mgmt: HDL | | | | | | 9 | | | + + + + + | Med Mgmt: LDL | | | | | | 9 | | | + + + + + | Med Mgmt: Total | | | | | Cholesterol | 9 | | | + + + + + | Med Mgmt: | | | | | Triglycerides | 9 | | | + + + + + | Medication | | | | | Management | 9 | | | + + + + + | Vaccine: | | | | | Dtap/Tdap/Td (1 - | 8 | | | | Tdap) | | | | + + + + + | Cervical Cancer | | | | | Screening (Pap) | 9 | | | + + + + + | Med Mgmt: BUN | | 12/09/19 | | | | 4 | 13, | | | | | 11/23/19 | | | | | 13 | | + + + + + | Med Mgmt: Cr | | 12/09/19 | | | | 4 | 13, | | | | | 11/23/19 | | | | | 13 | | + + + + + | Med Mgmt: HCT | | 12/09/19 | | | | 4 | 13, | | | | | 11/23/19 | | | | | 13 | | + + + + + | Med Mgmt: HGB | | 12/09/19 | | | | 4 | 13, | | | | | 11/23/19 | | | | | 13 | | + + + + + | Med Mgmt: PLT | | 12/09/19 | | | | 4 | 13, | | | | | 11/23/19 | | | | | 13 | | + + + + + | Med Mgmt: RBC | | 12/09/19 | | | | 4 | 13, | | | | | 11/23/19 | | | | | 13 | | + + + + + | Med Mgmt: WBC | | 12/09/19 | | | | 4 | 13, | | | | | 11/23/19 | | | | | 13 | | + + + + + | Vaccine: Influenza | | | | | (#1) | 0 | | | + + + + + Results Not on filefrom Last 3 Months Insurance + +--------+ +--------+ +---------+--------+ | Payer | Benefi | Subscriber | Effect | Phone | Address | Type | | | t Plan | ID | diego | | | | | | / | | Dates | | | | | | Group | | | | | | + +--------+ +--------+ +---------+--------+ | [employer] | [employer] | [id number] | | [phone] | | Indemn | | | WC | | 013-Pr | 5 | | ity | | | | | esent | | | | + +--------+ +--------+ +---------+--------+ | [employer] | [place] | [id number] | 04/20/ | | | Indemn | | | COMMUN | | 2019-P | | | ity | | | ITY | | resent | | | | | | CARE | | | | | | + +--------+ +--------+ +---------+--------+ | [employer] | [employer] | [id number] | 08/03/19 | | | Indemn | | | NS | | 14-Pre | | | ity | | | ADMIN | | sent | | | | | | [place] | | | | | | | | [place] | | | | | | + +--------+ +--------+ +---------+--------+ + +--------+ +--------+ + + | Guarantor Name | Accoun | Relation to | Date | Phone | Billing Address | | | t Type | Patient | of | | | | | | | | | | + +--------+ +--------+ + + | Edu,Astrid | Person | Self [birth year] | [address] | | | al/Fam | | 1979 | [phone] | [address] [place] | | | re[place] | | | 5 (Home) | [phone] | + +--------+ +--------+ + + | Astrid Sorensen | Worker | Self [birth year] | [address] | | | s Comp | | 1979 | [phone] | [place] | | | | | | 6 (Home) | [id number] | | | | | | [phone] | | | | | | | 5 (Work) | | + +--------+ +--------+ + + Advance Directives + + + + + | Type | Date Recorded | Patient | Explanation | | | | Cooker Sulfate | | + + + + + | Power of | | | | | Application Counselor | | | | + + + + + | Advance | 07/31/2015 8:44 | | May [place] | | Directive | PM | | | + + + + +
--- OUTSIDE RECORDS SUMMARY | ~2019-12-30 | XMS | Encounter Summary ---
Demographics + + + | Address | [address] | | | [place] [address] | + + + | Home Phone [...] [place], | | | | | [place] [address] | | + + + + + Care Team Providers + +------+ + | Care Immunohematologist Name | Role | Phone | + +------+ + | Fanta Jose | PCP | | + +------+ + Reason for Visit + + + | Reason | Comments | + + + | Initial Assessment | | + + + Evaluate & Treat (Routine) +--------+--------+ + + + + | Status | Reason | Specialty | Diagnoses / | Referred By | Referred To | | | | | Procedures | Contact | Contact | +--------+--------+ + + + + | Closed | | Rehabilitatio | Diagnoses | Rebeca, | Greg, | | | | n | Pain in | Fanta, GARMENT CUTTER | Mariela A, | | | | | left | 76 | OT [address] | | | | | finger(s) | [place] | | | | | Procedures | [address] | SHELLY BRAVO, | | | | | OT eval | [facility], [place] | [place] [address] | | | | | | [address] | Phone: | | | | | | Phone: | [phone] | | | | | | [phone] | Fax: | | | | | | Fax: | [phone] | | | | | | [phone] | | +--------+--------+ + + + + Encounter Details +--------+---------+ + + + | Date | Type | Department | Care Team | Description | +--------+---------+ + + + | 04/19/ | Office | [facility] [place] | Mariela Garza, | Weakness of left | | 2019 | Visit | [facility] | OT [address] | hand; Pain in finger | | | | [address] | [place], [place] | of left hand; | | | | [place], [place] | [address] | Stiffness of finger | | | | [address] | | joint of left hand | | | | [phone] | Micaela Thrasher, | | | | | | Aide | | +--------+---------+ + + + Social [...] this encounter Last Filed Vital Signs + +---------+ + + | Vital Sign | Reading | Time Taken | Comments | + +---------+ + + | Blood Pressure | 90/60 | 04/19/2019 2:27 PM | | | | | PST | | + +---------+ + + | Pulse | 52 | 04/19/2019 2:27 PM | | | | | PST | | + +---------+ + + | Temperature | - | - | | + +---------+ + + | Respiratory Rate | - | - | | + +---------+ + + | Oxygen Saturation | 99% | 04/19/2019 2:27 PM | | | | | PST | | + +---------+ + + | Inhaled Oxygen | - | - | | | Concentration | | | | + +---------+ + + | Weight | - | - | | + +---------+ + + | Height | - | - | | + +---------+ + + | Body Mass Index | - | - | | + +---------+ + + documented in this encounter Progress Notes Mariela Garza OT - 04/19/2019 2:30 PM PSTFormatting of this note might be different fr om the original. [facility] [address] [place] [address] [facility] [id number] Occupational Therapy Initial Assessment Date: 04/19/2019 Patient Information Patient Name: Astrid Sorensen Date of : 1980 Age: 38 y.o. History Problem Weakness of Left Hand Pain in Finger of Left Hand Stiffness of Finger Joint of Left Hand Mechanism of injury: Trauma History of symptoms: pt was playing football with some friends. The ball hit the end of th e ring finger with a resultant fracture. She did not realize it was fractured until she had an X ray 2 months later. Previous level of function and limitations: no limitations Work status:disabled - not working Living situation: Pt lives with parents. Social History Socioeconomic History Marital status: Spouse name: Not on file Number of children: Not on file Years of education: Not on file Highest education level: Not on file Tobacco Use Smoking status: Never Smoker Substance and Sexual Activity Alcohol use: No Drug use: No Comment: Drug use: No Encounter Diagnoses Code Name Primary? R29.898 Weakness of left hand M79.645 Pain in finger of left hand M25.642 Stiffness of finger joint of left hand Date of Onset: 03/28/2019 Referring Provider: GONZALEZ Herrera No history on file. Past Medical History: Diagnosis Date Anxiety Bipolar 1 disorder (HCC) Bipolar affective (HCC) Pilonidal abscess I PTSD (post-traumatic stress disorder) Past Surgical History: Procedure Laterality Date ECTOPIC SURGERY 2003 ECTOPIC SURGERY NASAL SEPTUM SURGERY NOSE SURGERY 2004 TUBAL LIGATION 2001 TUBAL LIGATION No family history on file. Developmental History No Known Allergies Prior Treatment: None within the last sixty days Abuse Assessment Do you feel safe in your current relationship or home?: Yes Pain Assessment: Pain Scale Used: NUMERIC Pain Rating Pre Assessment: 2 EVALUATION: SUBJECTIVE: History of Presenting Problem: Astrid is a 38 y.o. 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 OBJECTIVE: Vitals: Vital Signs Pulse: 52 BP: 90/60 SpO2: 99 % MEWS Total Score: 1 ROM: UE: Initial Eval 05/20/18 PN/DC PN/DC Measured in degrees Left Right Left Left ring DIP extensor lag -19 degrees STRENGTH: UE: Initial Eval 04/19/19 Initial Eval 04/19/19 PN/DC PN/DC Measured in lbs Right Left Right Left Gross Crayon Painter 63, 58, 56 33, 14, 40 tested at only 14# when using ring finger for testing. Gomez Pinch 21 14.5 Palpation: Moderate scar turgor noted in ring finger DIP SENSATION: Whole arm will go numb occasionally at night. It wakes her up. It is better w hen she stretches and she can return to sleep. It happens about 1 time a week. Standardized Tests: QuickDASH (QD) Open a tight or new jar: 2 - Mild Difficulty Do heavy engineering test mechanic: 3 - Moderate Difficulty Carry a shopping bag or briefcase: 3 - Moderate Difficulty Wash your back: 3 - Moderate Difficulty Use a Knife to cut food: 3 - Moderate Difficulty Recreational Activities which impact the UE: 3 - Moderate Difficulty Interfered with Social Activities: 3 - Moderately Limit Work or Regular Daily Activities: 3 - Moderately Limited Arm, shoulder or hand pain: 3 - Moderate Tingling in arm, shoulder or hand: 4 - Severe Difficulty Sleeping due to pain in UE: 5 - So Much Difficulty that I cannot sleep QuickDASH Mean Score (Calculated): 3.18 QuickDASH Disability/Symptom Score (Calculated): 54.55 QuickDASH Goal: Reduce QuickDash disability score from 54.55 to 40 or less indicating impro roldan ADL function and mobility. ASSESSMENT: Patient presents to occupational therapy with pain and stiffness of the left middle finger and hand. Objective exam reveals impairments with tissue turgor, 19 degree ring finger DIP extensor lag, hand weakness, polanco . These impairments and diagnosis are causing functional li mitations with patient's ability to grasp affecting participation in the following activiti es hold the steering wheel, type, hold the phone to text . Signs and symptoms are consistent with DIP fracture with resultant pain . Complexities contributing to frequency and duratio n of therapy: extended time since onset.. Rehabilitation potential: Patient demonstrates good potential to achieve established goals to address the documented impairments by participating in skilled occupational therapy serv ices. Goals: Outcome Specific Scored Goals Primary Functional Goals: PSFS, QuickDASH Patient Specific Functional Scale Goal 1: Pt will be able to pole incisor operator the steering wheel with t he left hand and shift with the right hand with pain at 1-2 Patient Specific Functional Scale Goal 1 Status Comment: pain increases to 4-5 Patient Specific Functional Scale Goal 2: pt will be able to type for 15 minutes wtih pain at 1 or text on the phone without the hand going numb Patient Specific Functional Scale Goal 2 Status Comment: pain and numbness limit her abilty to use the hand for activities. QuickDASH Goal: Reduce QuickDash disability score from 54.55 to 40 or less indicating impro roldan ADL function and mobility. OP OT Goals OP OT Goals: Goal 1 Goal 1: Independent home exercise program to facilitate independent symptom management. Plan Date of Onset: 03/28/2019 Start of Care Date: 04/19/2019 Requested # of Visits: 12 visits 2x/week for 6-8 weeks Certification From: 04/19/2019 Certification To: 06/18/2019 Treatment Plan/Interventions OT [id number] - Therapeutic [id number] - Therapeutic [id number] - Self Care/Ho me [id number] - Manual [id number] - [id number] - Paraffin Bath LLLT Patient and/or family has indicated understanding of treatment needs and actively participa maciel in the creation of this plan for care. Today's Treatment Start Time: 1435 Stop time: 1530 Duration: 55 minutes Timed Treatment Codes: 30 minutes # of OT Visits: 1 Objective: Education of rehab timeline, focus and expectations. Pt fitted with Stax splint to wear at night to determine if it will decrease extensor lag Pt instructed in MFR And vibration to finger to decrease scar turgor and tenderness Pt receptive to information. After tx, pt was surprised that the finger felt better. Next Visit: initiate strengthening, decreased tissue turgor. Electronically signed by: Mariela Garza OT, 04/19/2019 4:47 PM Patient Name: Astrid Sorensen/: 1980/ documented [...]
--- OUTSIDE RECORDS SUMMARY | ~2019-12-30 | XMS | Encounter Summary ---
Demographics + + + | Address | [address] | | | [place] [address] | + + + | Home Phone | | + + + | Preferred Language | Unknown | + + + | Marital Status | | + + + | Cheondoism Affiliation | Unknown | + + + | Race | White | + + + | Ethnic Group | Not or | + + + Author + + + | Author | [facility] | | | and [place] | + + + | Organization | [facility] | | [...] [place], | | | | | [place] [address] | | + + + + + Care Team Providers + +------+ + | Care Medical Sales Name | Role | Phone | + +------+ + | Duarte Jason MD | PCP | Unavailable | + +------+ + Reason for Visit +---------+ + | Reason | Comments | +---------+ + | Abscess | | +---------+ + Encounter Details +--------+ + + + + | Date | Type | Department | Care Team | Description | +--------+ + + + + | 07/30/ | Emergency | [facility] | Rosina Medina | Left buttock abscess | | 2016 | | [facility] | [facility] [address] | (Primary Dx) | | | | CENTER [address] | [facility], | | | | | [place] | [place] [address] | | | | | [address] | [phone] | | | | | [phone] | | | | | | | Marcel Walsh MD | | | | | | [address] | | | | | | [place] | | | | | | [id number] | | | | | | | [...] + + + | Blood Pressure | 129/70 | 07/31/2015 9:08 PM | | | | | PDT | | + + + + + | Pulse | 70 | 07/31/2015 9:08 PM | | | | | PDT | | + + + + + | Temperature | 36.9 C (98.5 F) | 07/31/2015 7:42 PM | | | | | PDT | | + + + + + | Respiratory Rate | 16 | 07/31/2015 9:08 PM | | | | | PDT | | + + + + + | Oxygen Saturation | 99% | 07/31/2015 9:08 PM | | | | | PDT | | + + + + + | Inhaled Oxygen | - | - | | | Concentration | | | | + + + + + | Weight | 79.4 kg (175 lb) | 07/31/2015 7:42 PM | | | | | PDT | | + + + + + | Height | 162.6 cm (5' 4") | 07/31/2015 7:42 PM | | | | | PDT | | + + + + + | Body Mass Index | 30.04 | 07/31/2015 7:42 PM | | | | | PDT | | + + + + + documented in this encounter Discharge Instructions Instructions Rosina Medina MD - 07/31/2015Please stay well-hydrated. Keep wound c lean and dry. Packing needs to be removed within 24-48 hours. You may do this at home, but ideally at [place] your primary care provider or the ER to do it initially so that your wound can be recheck ed within this time period. Return to the emergency room as needed. AttachmentsThe following attachments cannot be sent through Care Everywhere.ABSCESS, INCISI ON AND DRAINAGE (MALIAN)documented in this encounter Medications at Time of [...] + + documented as of this encounter Procedure Notes Rosina Medina MD - 07/31/2015 7:51 PM PDTAssociated Order(s): INCISION AND DRAINA GEIncision/Drainage Date/Time: 07/31/2015 19:55 Performed by: ROSINA MEDINA Authorized by: ROSINA MEDINA Consent: Verbal consent obtained. Risks and benefits: risks, benefits and alternatives were discussed Consent given by: patient Patient understanding: patient states understanding of the procedure being performed Patient consent: the patient's understanding of the procedure matches consent given Patient identity confirmed: verbally with patient Time out: Immediately prior to procedure a "time out" was called to verify the correct barry ent, procedure, equipment, customer support representative and site/side marked as required. Type: abscess Body area: anogenital Location details: gluteal cleft Anesthesia: local infiltration Local anesthetic: lidocaine 1% with epinephrine and bupivacaine 0.25% without epinephrine Anesthetic total (ml): 1.5ml of Lido and 1.0ml of Bupiva. Patient sedated: no Risk factor: underlying major vessel and underlying major nerve Scalpel size: 11 Incision type: single with marsupialization Complexity: complex Drainage: purulent and bloody Drainage amount: copious Wound treatment: drain placed Packing material: 1/2 in iodoform gauze Patient tolerance: Patient tolerated the procedure well with no immediate complications Comments: Extensive necrosis of adipose tissue in the sub-fascial layer. Pocket of abscess was quite extensive, and therefore using curved forceps as well as sterile cotton-tipped ap plicators were used to explore depth of the wound. Greatest depth of the wound to seem to m easure about 5 cm. Wound was irrigated with 60 cc of sterile saline. documented in t his encounter ED Notes Rosina Medina MD - 07/31/2015 7:47 PM PDTFormatting of this note might be differe nt from the original. [facility] Emergency Department Encounter Note [address] [place] [address] PCP:Duarte Jason MD [phone] CHIEF COMPLAINT: Abscess ED Room: ED06/ED06 ED Triage Notes Nicole España RN 07/31/2015 19:42 Pt reports an abscess on her buttocks since Thursday. HPI Astrid Sorensen is a 35 y.o. female, with known has a past medical history of Bipolar 1 disord er (HCC); PTSD (post-traumatic stress disorder); and Anxiety., who presents to the Emergency Department, accompanied by herself, with the above noted complaint(s). Patient states that she developed a little redness and swelling on her left buttock on Thursday. She states that she was seen at [facility] on Thursday, and they advised her that she should just follow-up with her physician at the [place] next week. Patient states that she has been mo nitoring this closely, taking serial photos. Patient states that she finally became worried as it appears to have gotten out of control, appreciably more enlarged, more tender, more r ed, draining bloody and thick whitish discharge. She shouldn't had originally thought to wa it until she could see her primary care provider at the [place], but felt like this could not ivana t and therefore came in this evening for treatment. Patient reports she has not had anythin g like this in the past, and has not been exposed to anyone with similar symptoms. However, she does state that she is currently [facility] [place] [facility] [place]. Patient reports she has not had fevers. Patient states that the pain is worse when she is sitting on her buttock or walking. She states that it is more comfortable when she is lying on her belly. Patient denies any pain down her legs. Patient reports no difficulty with u rinating or defecating. Patient states that she has not really taken anything for the pain. PAST MEDICAL & SURGICAL HISTORY Past Medical History Diagnosis Date Bipolar 1 disorder (HCC) PTSD (post-traumatic stress disorder) Anxiety Past Surgical History Procedure Laterality Date Tubal ligation 2001 Ectopic surgery 2004 Nose surgery 2003 CURRENT MEDICATIONS Discharge Medication List as of 07/31/2015 20:55 CONTINUE these medications which have NOT CHANGED Details ARIPiprazole (ABILIFY) 2 mg tablet Take 7.5 mg by mouth Daily.Historical Med !! cephalexin (KEFLEX) 250 mg capsule Take 1,000 mg by mouth 2 times daily.Historical Med fluticasone (FLONASE) 50 mcg/nasal spray 1 spray by Nasal route Daily.Historical Med ibuprofen (ADVIL,MOTRIN) 600 MG tablet Take 600 mg by mouth every 6 hours as needed for Fredy n.Historical Med Loratadine 10 MG CAPS Take by mouth.Historical Med prazosin (MINIPRESS) 5 mg capsule Take 6 mg by mouth nightly.Historical Med !! sulfamethoxazole-trimethoprim (BACTRIM DS) 800-160 mg per tablet Take 1 tablet by mouth 2 times daily.Historical MedDose in mg is based on trimethoprim component. venlafaxine (EFFEXOR XR) 225 mg ER tablet Take 225 mg by mouth daily (with breakfast).Histo rical Med !! - Potential duplicate medications found. Please discuss with provider. ALLERGIES No Known Allergies FAMILY AND SOCIAL HISTORY No family history on file. History Social History Marital Status: Spouse Name: N/A Number of Children: N/A Years of Education: N/A Social History Main Topics Smoking status: Never Smoker Smokeless tobacco: Not on file Alcohol Use: No Drug Use: No Sexual Activity: Not on file Other Topics Concern None Social History Narrative REVIEW OF SYSTEMS As in history of present illness. A 10 system review was otherwise negative. PHYSICAL EXAM VITAL SIGNS: (first vital signs):Temp: 36.9 C (98.5 F) Pulse: 83 Resp: 16 SpO2: 97 % BP : 124/71 mmHg General Appearance: female patient, well developed, well appearing, in mild to moderate vis ible distress HEENT: Atraumatic, PERRL, with pink and moist mucous membranes. Neck: Neck is supple with full range of motion Respiratory: Nonlabored breathing, adequate chest excursion. Genitourinary: Left buttock reveals an irregularly shaped 15+ x 15+ cm area of erythema med ially and superiorly to the rectum, with a 4 x 6cm area of induration and fluctuance with a 1 cm head that is slightly bloody draining some serous fluid with some thick whitish fibrino us debris at its head, notable tenderness to palpation Back: Within normal limits, normal range of motion Extremities: full range of motion throughout. Without pedal edema. Capillary refill less than 2 seconds throughout Skin: Warm, dry Neurologic: Alert & oriented. Moves all extremities appropriately. Psychiatric: Normal mood, normal affect. LABS Wound culture pending IMAGING STUIDES (X-Rays interpreted by ED Physician) No results found. Not indicated. ED COURSE & MEDICAL DECISION MAKING Pertinent Labs & Imaging studies were reviewed. See chart for details. (EMS notes and Nursi home records reviewed, if applicable.) Medications and Allergy list reviewed. Nurses note and old records were reviewed Patient is a 35 y.o. female who presents with Abscess She has a notable abscess on left medial buttock with surrounding erythema and likely cellu litis. Abscess needs to be I&D for more definitive treatment. Please see procedure note fo r further details. Given the extent of the abscess and associated cellulitis, we will administer antibiotic th erapy. Rocephin IM was administered and by mouth sulfa was given. Although patient's aller gy include sulfa, she has been on this medication before and it is unknown what her reaction is. Patient has been observed 30 minutes after administration of the IM Rocephin and by [facility] sulf[facility]. Wound cultures have been obtained and will await culture and sensitivity. Because patient drove herself, no narcotic pain medicine can be administered at this time. However atrial c ontact will be provided as well as a prescription for patient to fill tomorrow during [facility] pharmacy business hours. Patient has been advised to follow-up with her primary care provider for wound reevaluation , or return to the ER, within 2 days for wound repacking. Patient reports that her mom is a retired [employer], and she could also assist with wound repacking as needed. Patient is discharg ed home with half inch iodoform packing strips. Patient is discharged home in good and stable condition. Meds ordered: Administrations This Visit cefTRIAXone (ROCEPHIN) 1 g in lidocaine IM syringe (350 mg/mL) Admin Date Action Dose Route Administered By 07/31/2015 Given 1 g Intramuscular Nicole Mtz RN HYDROcodone-acetaminophen (NORCO) 5-325 mg per tablet (ER Prepack) 1-2 tablet Admin Date Action Dose Route Administered By 07/31/2015 Dispense to Home 1 tablet Oral Jenna Feldman RN ondansetron (ZOFRAN ODT) disintegrating tablet (ED homepack) 4 mg Admin Date Action Dose Route Administered By 07/31/2015 Dispense to Home 4 mg Oral Jenna Feldman RN sulfamethoxazole-trimethoprim (BACTRIM DS) 800-160 mg per tablet 1 tablet Admin Date Action Dose Route Administered By 07/31/2015 Given 1 tablet Oral Nicole Mtz RN Upon re-evaluation, patient reports no adverse reaction. Last Set of Vital Signs: Temp: 36.9 C (98.5 F) Pulse: 70 Resp: 16 SpO2: 99 % BP: 129/70 mmHg FINAL IMPRESSION ICD-10-CM ICD-9-CM 1. Left buttock abscess L02.31 682.5 Follow-up Information Follow up with Duarte Jason MD In 2 days. Specialty: Internal Medicine Why: For wound re-check Contact information: [address] [facility] [address] Follow up with [facility]. Specialty: Emergency Medicine Why: If symptoms worsen, As needed, For wound re-check Contact information: [address] [facility] [address] Discharge Medication List as of 07/31/2015 20:55 START taking these medications Details !! cephalexin (KEFLEX) 500 mg capsule Take 1 capsule by mouth 3 times daily for 7 days.Disp -21 capsule, R-0, Normal HYDROcodone-acetaminophen (NORCO) 5-325 mg per tablet Take 1 tablet by mouth every 6 hours as needed.Disp-10 tablet, R-0, Print ondansetron (ZOFRAN ODT) 4 mg disintegrating tablet Take 1 tablet by mouth every 6 hours as needed for Nausea.Disp-10 tablet, R-0, Normal !! sulfamethoxazole-trimethoprim (BACTRIM DS) 800-160 mg per tablet Take 1 tablet by mouth 2 times daily for 7 days.Disp-14 tablet, R-0, NormalDose in mg is based on trimethoprim comp onent. !! - Potential duplicate medications found. Please discuss with provider. Rosina Medina MD 07/31/15 2320 do cumented in this encounter Miscellaneous Notes ED Triage Notes - Nicole España RN - 07/31/2015 7:42 PM PDTPt reports an abscess on h er buttocks since Thursday. documented in this encounter Plan of Treatment Not on filedocumented as of this encounter Procedures + +--------+ + + + | Procedure Name | Priori | Date/Time | Associated Diagnosis | Comments | | | ty | | | | + +--------+ + + + | INCISION AND | Routin | 07/31/2015 | | Results for this | | DRAINAGE | e | 11:25 PM | | procedure are in the | | | | PDT | | results section. | + +--------+ + + + | CULTURE, WOUND, | STAT | 07/31/2015 | | Results for this | | SMEAR | | 8:51 PM | | procedure are in the | | | | PDT | | results section. | + +--------+ + + + documented in this encounter Results INCISION AND DRAINAGE (07/31/2015 11:25 PM PDT) + + + | Narrative | Performed At | + + + | Rosina Medina MD 07/31/2015 23:25 Incision/Drainage | | | Date/Time: 07/31/2015 19:55 Performed by: ROSINA MEDINA | | | Authorized by: ROSINA MEDINA Consent: Verbal consent | | | obtained. Risks and benefits: risks, benefits and alternatives were | | | discussed Consent given by: patient Patient understanding: patient | | | states understanding of the procedure being performed Patient | | | consent: the patient's understanding of the procedure matches | | | consent given Patient identity confirmed: verbally with patient Time | | | out: Immediately prior to procedure a "time out" was called to | | | verify the correct patient, procedure, equipment, customer support representative and | | | site/side marked as required. Type: abscess Body area: anogenital | | | Location details: gluteal cleft Anesthesia: local infiltration Local | | | anesthetic: lidocaine 1% with epinephrine and bupivacaine 0.25% | | | without epinephrine Anesthetic total (ml): 1.5ml of Lido and 1.0ml of | | | Bupiva. Patient sedated: no Risk factor: underlying major vessel | | | and underlying major nerve Scalpel size: 11 Incision type: single | | | with marsupialization Complexity: complex Drainage: purulent and | | | bloody Drainage amount: copious Wound treatment: drain placed | | | Packing material: 1/2 in iodoform gauze Patient tolerance: Patient | | | tolerated the procedure well with no immediate complications | | | Comments: Extensive necrosis of adipose tissue in the sub-fascial | | | layer. Pocket of abscess was quite extensive, and therefore using | | | curved forceps as well as sterile cotton-tipped applicators were | | | used to explore depth of the wound. Greatest depth of the wound to | | | seem to measure about 5 cm. Wound was irrigated with 60 cc of | | | sterile saline. | | + + + Culture, Wound, Smear (07/31/2015 8:51 PM PDT) + + + + + + | Component | Value | Ref Range | Performed | Pathologist | | | | | At | Signature | + + + + + + | Culture | 3+ Staphylococcus aureus | | [facility] | | | | | | [facility] | | | | | | [facility] | | | | | | [facility] | | | | | | [facility] | | + + + + + + | Gram Stain | 3+ White Blood Cells | | [facility] | | | Result | | | [facility] | | | | | | [facility] | | | | | | [facility] - | | | | | | LABORATORY | | + + + + + + | Gram Stain | 3+ Gram positive cocci | | [facility] | | | Result | | | [facility] | | | | | | [facility] | | | | | | [facility] - | | | | | | LABORATORY | | + + + + + + + + | Specimen | + + | Wound - back | | and buttocks | | (combined site) | | (body structure) | + + + + +--------+ + | Organism | Antibiotic | Method | Susceptibility | + + +--------+ + | Staphylococcus | Clindamycin | | <=0.25: Sensitive | | aureus | | | | + + +--------+ + | Staphylococcus | Oxacillin | | <=0.25: Sensitive | | aureus | | | | + + +--------+ + | Staphylococcus | Penicillin G | | Resistant | | aureus | | | | + + +--------+ + | Staphylococcus | Rifampin | | <=0.5: Sensitive | | aureus | | | | + + +--------+ + | Staphylococcus | Tetracycline | | <=1: Sensitive | | aureus | | | | + + +--------+ + | Staphylococcus | Trimethoprim + | | <=10: Sensitive | | aureus | Sulfamethoxazole | | | + + +--------+ + + + + + + | Performing | Address | City/State/Zipcode | Phone Number | | Organization | | | | + + + + + | [facility] | [address] | [place] | [phone] | | [facility] | | [address] | | | - LABORATORY | | | | + + + + + documented in this encounter Visit Diagnoses + + | Diagnosis | + + | Left buttock abscess - Primary Cellulitis and abscess of buttock | + + documented in this encounter Administered Medications + +--------+ +------+------+ + | Medication Order | MAR | Action | Dose | Rate | Site | | | Action | Date | | | | + +--------+ +------+------+ + | cefTRIAXone (ROCEPHIN) 1 g in | Given | 07/31/19 | 1 g | | Ventrogl | | lidocaine IM syringe (350 mg/mL) | | 16 8:48 | | | uteal-Ri | | 1 g (rounded from 1,000 mg), | | PM PDT | | | ght | | Intramuscular, ONCE, 07/31/15 | | | | | | | at 2044, For 1 dose, Keep in | | | | | | | refrigerator. For IM use only., | | | | | | | Indications: Abscess | | | | | | + +--------+ +------+------+ + +---+---+ | | | +---+---+ + + + + +---+---+ | HYDROcodone-acetaminophen | Dispense | 07/31/19 | 1 tablet | | | | (NORCO) 5-325 mg per tablet (ER | to Home | 16 9:05 | | | | | Prepack) 1-2 tablet 1-2 tablet, | | PM PDT | | | | | Oral, ONCE, 07/31/15 at 2045, | | | | | | | For 1 dose, 1 tablet(s) every 6 | | | | | | | hours prn pain Dispense for home | | | | | | | use., | | | | | | + + + + +---+---+ +---+---+ | | | +---+---+ + + + +------+---+---+ | ondansetron (ZOFRAN ODT) | Dispense | 07/31/19 | 4 mg | | | | disintegrating tablet (ED | to Home | 16 9:04 | | | | | homepack) 4 mg 4 mg, Oral, ONCE, | | PM PDT | | | | | 07/31/15 at 2044, For 1 dose, | | | | | | | Dissolve on tongue or swallow 1 | | | | | | | tablets every 6 hours prn nausea | | | | | | | or vomiting Dispense for home | | | | | | | use., | | | | | | + + + +------+---+---+ +---+---+ | | | +---+---+ + +-------+ + +---+---+ | sulfamethoxazole-trimethoprim | Given | 07/31/19 | 1 tablet | | | | (BACTRIM DS) 800-160 mg per | | 16 8:48 | | | | | tablet 1 tablet 1 tablet, Oral, | | PM PDT | | | | | ONCE, 07/31/15 at 2044, For 1 | | | | | | | dose, Indications: Abscess | | | | | | + +-------+ + +---+---+ +---+---+ | | | +---+---+ documented in this encounter
--- OUTSIDE RECORDS SUMMARY | ~2019-12-30 | XMS | Encounter Summary ---
Demographics + + + | Address | [address] | | | [place] [address] | + + + | Home Phone [...] + + + | Author | [facility] | | | and [place] | + + + | Organization | [facility] | | [...] [place], | | | | | [place] [address] | | + + + + + Care Team Providers + +------+ + | Care Personal Lines Insurance Agent Name | Role | Phone | + +------+ + PCP | Unavailable | + +------+ + Encounter Details +--------+ + + + + | Date | Type | Department | Care Team | Description | +--------+ + + + + | 10/23/ | Hospital | [facility] | | | | 1998 | Encounter | MED CTR GENERIC OP | | | | | | CONV DEPT [address] | | | | | | [place], | | | | | | [place] [address] | | | | | | [phone] | | | +--------+ + + + [...]
--- OUTSIDE RECORDS SUMMARY | ~2019-12-30 | XMS | Encounter Summary ---
Demographics + + + | Address | [address] | | | [place] [address] | + + + | Home Phone | | + + + | Preferred Language | Unknown | + + + | Marital Status | | + + + | Anabaptism Affiliation | Unknown | + + + | Race | White | + + + | Ethnic Group | Not or | + + + Author + + + | Author | [facility] | | | and [place] | + + + | Organization | [facility] | | | [...] [place], | | | | | [place] [address] | | + + + + + Care Team Providers + +------+ + | Care Heat Treating Furnace Tender Name | Role | Phone | + +------+ + PCP | Unavailable | + +------+ + Encounter Details +--------+ + + + + | Date | Type | Department | Care Team | Description | +--------+ + + + + | 01/25/ | Hospital | [facility] | | | | 1996 | Encounter | MED CTR XRAY [address] | | | | | | [place] | | | | | | [place] [address] | | | | | | [phone] | | | +--------+ + + + [...]
--- OUTSIDE RECORDS SUMMARY | ~2019-12-30 | XMS | Encounter Summary ---
Demographics + + + | Address | [address] | | | [place] [address] | + + + | Home Phone | | + + + | Preferred Language | Unknown | + + + | Marital Status | | + + + | Holiness Affiliation | Unknown | + + + | Race | White | + + + | Ethnic Group | Not or | + + + Author + + + | Author | [facility] | | | and [place] | + + + | Organization | [facility] | | [...] [place], | | | | | [place] [address] | | + + + + + Care Team Providers + +------+ + | Care Certified Paralegal Name | Role | Phone | + +------+ + | Fanta Jose | PCP | | + +------+ + Reason for Visit Auth/Cert +--------+--------+ + + + + | Status | Reason | Specialty | Diagnoses / | Referred By | Referred To | | | | | Procedures | Contact | Contact | +--------+--------+ + + + + | | | | | | | +--------+--------+ + + + + Encounter Details +--------+ + + + + | Date | Type | Department | Care Team | Description | +--------+ + + + + | 04/21/ | [facility] | [facility] | Fanta Jose FNP | Screening for | | 2019 | Encounter | MED CTR MAMMOGRAPHY | [facility] | malignant neoplasm | | | | [address] | [place] | of breast | | | | [place] | [id number] | | | | | [address] | | | | | | [phone] | | | +--------+ + + + [...] tablet by | 10 | 0 | 03// | | | HYDROcodone-acetamin | mouth every [...] | + +--------+ + + + | [facility]ST[facility] TOMOSYN | Routin | 04/21/2019 | Screening for | Results for this | | SCREENING BILATERAL | e | 2:56 PM | malignant neoplasm | procedure are in the | | | | PST | of breast | results section. | + +--------+ + + + documented in this encounter Results CHRISTIAN Tomosynthesis Screening Bilateral (04/21/2019 2:56 PM PST) + + | Specimen | + + | | + + + + + | Impressions | Performed At | + + + | 1. BIRADS 1, NEGATIVE. RECOMMENDATION: ANNUAL SCREENING | [facility] | | MAMMOGRAPHY. Dictated and Signed by: Kalin Correia MD | | | Electronically signed: 04/21/2019 4:41 PM | | + + + + + + | Narrative | Performed At | + + + | BILATERAL DIGITAL SCREENING MAMMOGRAM WITH COMPUTER-AIDED DETECTION | [facility] | | AND TOMOSYNTHESIS 04/21/2019 2:21 PM CLINICAL HISTORY: Bilateral | | | screening exam. Asymptomatic, premenopausal. No reported family | | | history of breast cancer. COMPARISON: 2008 FINDINGS: Breast | | | composition is comprised of scattered fibroglandular densities. No | | | mass, architectural distortion or microcalcification is visible in | | | either breast on the 2-D or yamile images. Images were reviewed with | | | CAD. | | + + + + + | Procedure Note | + + | Jer, Rad Results In - 04/21/2019 4:44 PM PST BILATERAL DIGITAL SCREENING MAMMOGRAM | | WITH COMPUTER-AIDED DETECTION ANDTOMOSYNTHESIS 04/21/2019 2:21 PMCLINICAL HISTORY: | | Bilateral screening exam. Asymptomatic, premenopausal. Noreported family history of | | breast cancer.COMPARISON: 2009FINDINGS: Breast composition is comprised of scattered | | fibroglandulardensities. No mass, architectural distortion or microcalcification is | | visible ineither breast on the 2-D or yamile images. Images were reviewed with | | CAD.IMPRESSION: 1. BIRADS 1, NEGATIVE.RECOMMENDATION: ANNUAL SCREENING | | MAMMOGRAPHY.Dictated and Signed by: Kalin Correia MD Electronically signed: 04/21/2019 | | 4:41 PM | |densities. No mass, architectural distortion or microcalcification is visible in | |either breast on the 2-D or yamile images. Images were reviewed with CAD. | | | |IMPRESSION: | |1. BIRADS 1, NEGATIVE. | | | |RECOMMENDATION: ANNUAL SCREENING MAMMOGRAPHY. | | | |Dictated and Signed by: Kalin Correia MD | | Electronically signed: 04/21/2019 4:41 PM | + + + +---------+ + + | Performing | Address | City/State/Zipcode | Phone Number | | Organization | | | | + +---------+ + + | [facility] | | | | + +---------+ + + documented in this encounter Visit Diagnoses + + | Diagnosis | + + | Screening for malignant neoplasm of breast Breast screening, unspecified | + + documented in this encounter"
--- OUTSIDE RECORDS SUMMARY | ~2019-12-30 | XMS | Encounter Summary ---
Demographics + + + | Address | [address] | | | [place] [address] | + + + | Home Phone | | + + + | Preferred Language | Unknown | + + + | Marital Status | | + + + | Religion Affiliation | Unknown | + + + | Race | White | + + + | Ethnic Group | Not or | + + + Author + + + | Author | [facility] | | | and [place] | + + + | Organization | [facility] | | | [...] [place], | | | | | [place] [address] | | + + + + + Care Team Providers + +------+ + | Care Technical Buyer Name | Role | Phone | + +------+ + | Duarte Jason MD | PCP | Unavailable | + +------+ + Reason for Visit + +--------+ + | Reason | Onset | Comments | | | Date | | + +--------+ + | Appointment | 04/06/ | | | | 2019 | | + +--------+ + Encounter Details +--------+ + + + + | Date | Type | Department | Care Team | Description | +--------+ + + + + | 04/06/ | Telephone | [facility] | Mariela Garza, | Appointment | | 2019 | | [facility] | OT [address] | | | | | [address] | [place] | | | | | [place] | [address] | | | | | [address] | | | | | | [phone] | | | +--------+ + + + [...] this encounter Miscellaneous Notes Telephone Encounter - Fernanda Moise - 04/06/2019 10:35 AM PSTPatient called to cancel h er OT evaluation for today (04/06). She stated that she had dental work done and her mouth i t to numb to come in. She was rescheduled for 04/19 @ 2:30pm. documented in this encounter Plan of Treatment Not on filedocumented as of this encounter Visit Diagnoses Not on filedocumented in this encounter"
--- OUTSIDE RECORDS SUMMARY | ~2019-12-30 | XMS | Encounter Summary ---
Demographics + + + | Address | [address] | | | [place] [address] | + + + | Home Phone | | + + + | Preferred Language | Unknown | + + + | Marital Status | | + + + | Anabaptist Affiliation | Unknown | + + + | Race | White | + + + | Ethnic Group | Not or | + + + Author + + + | Author | [facility] | | | and [place] | + + + | Organization | [facility] | | [...] [place], | | | | | [place] [address] | | + + + + + Care Team Providers + +------+ + | Care Infant Caregiver Name | Role | Phone | + +------+ + PCP | Unavailable | + +------+ + Encounter Details +--------+ + + + + | Date | Type | Department | Care Team | Description | +--------+ + + + + | 09/26/ | Hospital | [facility] | | | | 2008 | Encounter | MED CTR XRAY [address] | | | | | [place] | | | | | | [place] [address] | | | | | | [phone] | | | +--------+ + + + [...]
--- OUTSIDE RECORDS SUMMARY | ~2019-12-30 | XMS | Encounter Summary ---
Demographics + + + | Address | [address] | | | [place] [address] | + + + | Home Phone | | + + + | Preferred Language | Unknown | + + + | Marital Status | | + + + | Restoration Affiliation | Unknown | + + + | Race | White | + + + | Ethnic Group | Not or | + + + Author + + + | Author | [facility] | | | and [place] | + + + | Organization | [facility] | | | and [...] [place], | | | | | [place] [address] | | + + + + + Care Team Providers + +------+ + | Care Etl Tester Name | Role | Phone | + +------+ + PCP | Unavailable | + +------+ + Encounter Details +--------+ + + + + | Date | Type | Department | Care Team | Description | +--------+ + + + + | 07/15/ | Hospital | [facility] | | | | 2002 | Encounter | MED CTR LABORATORY | | | | | | [address] | | | | | | [place] | | | | | | [address] | | | | | | [phone] | | | +--------+ + + + [...]
--- OUTSIDE RECORDS SUMMARY | ~2019-12-30 | XMS | Encounter Summary ---
Demographics + + + | Address | [address] | | | [place] [address] | + + + | Home Phone | | + + + | Preferred Language | Unknown | + + + | Marital Status | | + + + | Gnosticist Affiliation | Unknown | + + + | Race | White | + + + | Ethnic Group | Not or | + + + Author + + + | Author | [facility] | | | and [place] | + + + | Organization | [facility] | | [...] [place], | | | | | [place] [address] | | + + + + + Care Team Providers + +------+ + | Care Customer Success Associate Name | Role | Phone | + +------+ + | No, Physician | PCP | Unavailable | + +------+ + Reason for Visit + + + | Reason | Comments | + + + | Head Pain | | + + + Encounter Details +--------+ + + + + | Date | Type | Department | Care Team | Description | +--------+ + + + + | 08/06/ | Emergency | [facility] | Evin Armstrong, | [place] (Primary | | 2013 - | | MED CTR EMERGENCY | MD [address] | Dx) | | | | CENTER [address] | [facility] | | | 08/07/ | | [place] | [place] [address] | | | 2013 | | [address] | [phone] | | | | | [phone] | | | +--------+ + + + [...] + + + | Blood Pressure | 109/72 | 08/06/2013 11:15 PM | | | | | PDT | | + + + + + | Pulse | 76 | 08/06/2013 11:15 PM | | | | | PDT | | + + + + + | Temperature | 36.7 C (98 F) | 08/06/2013 11:15 PM | | | | | PDT | | + + + + + | Respiratory Rate | 16 | 08/06/2013 11:15 PM | | | | | PDT | | + + + + + | Oxygen Saturation | 96% | 08/06/2013 11:15 PM | | | | | PDT | | + + + + + | Inhaled Oxygen | - | - | | | Concentration | | | | + + + + + | Weight | 91.6 kg (202 lb) | 08/06/2013 11:15 PM | | | | | PDT | | + + + + + | Height | 162.6 cm (5' 4") | 08/06/2013 11:15 PM | | | | | PDT | | + + + + + | Body Mass Index | 34.67 | 08/06/2013 11:15 PM | | | | | PDT | | + + + + + documented in this encounter Discharge Instructions Instructions Evin Armstrong MD - 08/07/2013Return immediately if your symptoms worsen Take the medications as prescribed Stay well-hydrated Followup with your primary care doctor AttachmentsThe following attachments cannot be sent through Care Everywhere.HEADACHE, UNSPE CIFIED (ITALIAN)documented in this encounter Medications at Time of [...] + +---------+ + + | | Take 2 tablets by | 20 | 0 | 08/08/19 | | | butalbital-acetamino | mouth every 6 hours | tablet | | 14 | 6 | | phen-caffeine | as needed for Pain | | | | | | (FIORICET) per | for 20 doses. | | | | | | tablet | | | | | | + + + +---------+ + + | cyclobenzaprine | Take 5 mg [...] + + + +---------+ + + | Ketorolac | Take 1 tablet by | | 0 | | | | Tromethamine | mouth 4 times daily | | | | 6 | | (TORADOL ORAL PO) | as needed. | | | | | + + + +---------+ + + | ondansetron | Take 1 tablet by | 12 | 0 | 08/08/19 | | | (ZOFRAN ODT) 4 mg | mouth every 8 hours | tablet | | 14 | 4 | | disintegrating | as needed for Nausea | | | | | | tablet | for 12 days. | | | | | + + + +---------+ + + documented as of this encounter ED Notes Clauido Sanchez RN - 08/07/2013 12:13 AM PDTPt. Refused all care. Stating that she did n ot feel like she needed to be here. Wanting to go home. Declined IV and all medications. Left ambulatory with scripts, and denies questions. rown, Evin Muhammad MD - 08/07/2013 12:08 AM PDT eMERGENCY dEPARTMENT eNCOUnter CHIEF COMPLAINT Chief Complaint Patient presents with Head Pain HPI Astrid Sorensen is a 33 y.o. female who presents to the emergency department accompanied by her daughter for evaluation of headache. She has had symptoms for last 2 days. The symptoms s eem to be focused on the left base of her scalp. She noticed a lump there. She's been naus eated, in fact she vomited on the way here. The headache is focal in the back of her head. She does have some stiffness of her neck. She feels like she's had some fevers, but has no t checked her temperature. No cough or cold symptoms. No chest pain. Nobody else around h er is sick at this time. She denies any injuries. The headache is sharp in nature. The he adache seems to increase if he pushes on the back of her head, or turns her head certain way s. PAST MEDICAL HISTORY History reviewed. No pertinent past medical history. SURGICAL HISTORY Past Surgical History Procedure Date Tubal ligation 2002 Ectopic surgery 2004 Nose surgery 2004 CURRENT MEDICATIONS Previous Medications ARIPIPRAZOLE (ABILIFY) 2 MG TABLET Take 2 mg by mouth Daily. CYCLOBENZAPRINE (FLEXERIL) 5 MG TABLET Take 5 mg by mouth 3 times daily as needed. HYDROCODONE-ACETAMINOPHEN (NORCO) 5-325 MG PER TABLET Take 1 tablet by mouth every 6 ho urs as needed. KETOROLAC TROMETHAMINE (TORADOL ORAL PO) Take 1 tablet by mouth 4 times daily as needed . ALLERGIES No Known Allergies FAMILY HISTORY No family history on file. SOCIAL HISTORY History Social History Marital Status: Spouse Name: N/A Number of Children: N/A Years of Education: N/A Social History Main Topics Smoking status: Never Smoker Smokeless tobacco: None Alcohol Use: No Drug Use: None Sexually Active: None Other Topics Concern None Social History Narrative None REVIEW OF SYSTEMS All systems reviewed and found negative except what is in the HPI PHYSICAL EXAM VITAL SIGNS: BP 109/72 | Pulse 76 | Temp 36.7 C (98 F) (Oral) | Resp 16 | Ht 1.626 m ( 5' 4") | Wt 91.627 kg (202 lb) | BMI 34.66 kg/m2 | SpO2 96% | LMP 07/27/2013 Constitutional: Well developed, Well nourished, No acute distress, Non-toxic appearance. HENT: Normocephalic, Atraumatic, Bilateral external ears normal, Tympanic membranes normal , Mucous membranes are moist, Nasal mucosa is normal. There is tenderness to palpation on t he left occipital base. There is a mobile small lymph node noted there. Eyes: PERRL, EOMI, Conjunctiva normal, No discharge. Palpebral conjunctiva are pink. Neck: Normal range of motion, No tenderness, Supple, No stridor. Respiratory: Clear to auscultation bilaterally, No respiratory distress, No wheezing Chest: Non tender, no signs of trauma Cardiovascular: Normal heart rate, Normal rhythm, No murmurs appreciated. GI: Soft, Non tenderness, No peritoneal signs, No masses Extremities: Warm and well perfused, no edema, no joint swelling or deformity. Good ROM. Back: No CVAT, No tenderness of the thoracic or lumbar spine. Skin: Warm, Dry, No erythema, No induration, No rash. In particular there are no scalp le sions noted. Neurologic: Alert & oriented x 3, No focal motor or sensory deficits. Speech is clear. G ait is normal. ED COURSE & MEDICAL DECISION MAKING The patient was seen and examined shortly after arriving in the emergency department. Hist ory and physical obtained, vital signs are noted. Her neurologic exam is normal. Vital sig ns are normal. I do not think she needs any testing at this time. The headache is typical for tension type headache. Anxiety is playing some role as well. She has a small lymph nod e in the left occipital base that is somewhat tender. I did not see any significant scalp s kin infection that warrants intervention. I was going to treat her headache with some IV me dications here in the ER. She declined to have this done. She states she feels okay, but i f she doesn't have a serious illness she would like to go ahead and treat herself at home. I did offer her some Zofran to go home with. She remained neurologically stable here. Caitie l signs are excellent. She will be discharged home. FINAL IMPRESSION 1. Cephalgia PLAN Follow-up Information Follow up with Francis Iqbal MD. Schedule an appointment as soon as possible for a visi t in 3 days. Contact information: [address] [place] [address] [phone] New Prescriptions [id number] (FIORICET) PER TABLET Take 2 tablets by mouth every 6 hours as needed for Pain for 20 doses. ONDANSETRON (ZOFRAN ODT) 4 MG DISINTEGRATING TABLET Take 1 tablet by mouth every 8 hour s as needed for Nausea for 12 days. Evin Armstrong MD 08/07/13 0408 docume nted in this encounter Miscellaneous Notes Plan of Care - [facility] - 08/10/2013 12:00 AM PDT D Triage Notes - Bryan Franco RN - 08/06/2013 11:13 PM PDTCc Head and scalp x 2 days on the left base of head. Nausea, fever chills.Electronical ly signed by Bryan Gallegos RN at 08/06/2013 11:15 PM PDTdocumented in this encounter Plan of Treatment Not on filedocumented as of this encounter Visit Diagnoses + + | Diagnosis | + + | Cephalgia - Primary Headache | + + documented in this encounter
--- OUTSIDE RECORDS SUMMARY | ~2019-12-30 | XMS | Encounter Summary ---
Demographics + + + | Address | [address] | | | [place] [address] | + + + | Home Phone | | + + + | Preferred Language | Unknown | + + + | Marital Status | | + + + | Religion Affiliation | Unknown | + + + | Race | White | + + + | Ethnic Group | Not or | + + + Author + + + | Author | [facility] | | | and [place] | + + + | Organization | [facility] | | [...] [place], | | | | | [place] [address] | | + + + + + Care Team Providers + +------+ + | Care Commercial Drafter Name | Role | Phone | + +------+ + PCP | Unavailable | + +------+ + Encounter Details +--------+ + + + + | Date | Type | Department | Care Team | Description | +--------+ + + + + | 02/16/ | Hospital | [facility] | | | | 1992 | Encounter | MED CTR EMERGENCY | | | | | | [place] [address] | | | | | | [place] | | | | | | [address] | | | | | | [phone] | | | +--------+ + + + [...]
--- OUTSIDE RECORDS SUMMARY | ~2019-12-30 | XMS | Encounter Summary ---
Demographics + + + | Address | [address] | | | [place] [address] | + + + | Home Phone [...] [place], | | | | | [place] [address] | | + + + + + Care Team Providers + +------+ + | Care Viscosity Worker Name | Role | Phone | + +------+ + | Fanta Joes | PCP | | + +------+ + Encounter Details +--------+ + + + + | Date | Type | Department | Care Team | Description | +--------+ + + + + | 12/26/ | Telephone | [facility] | Maribel Badillo, OT | | | 2018 | | [facility] | [address] | | | | | [address] | [place] | | | | | [place] | [address] | | | | | [address] | | | | | | [phone] | | | +--------+ + + + [...] this encounter Miscellaneous Notes Telephone Encounter - Maribel Lima OT - 04/28/2019 4:27 PM PSTLeft message re missed O T appt today. Reminded pt of upcoming appt on 05/09 and requested call back if pt needs to reschedule. documented in this encounter Plan of Treatment Not on filedocumented as of this encounter Visit Diagnoses Not on filedocumented in this encounter"
--- OUTSIDE RECORDS SUMMARY | ~2019-12-30 | XMS | Encounter Summary ---
Demographics + + + | Address | [address] | | | [place] [address] | + + + | Home Phone | | + + + | Preferred Language | Unknown | + + + | Marital Status | | + + + | Mormon Affiliation | Unknown | + + + | Race | White | + + + | Ethnic Group | Not or | + + + Author + + + | Author | [facility] | | | and [place] | + + + | Organization | [facility] | | | [...] [place], | | | | | [place] [address] | | + + + + + Care Team Providers + +------+ + | Care Clinical Support Tech Name | Role | Phone | + +------+ + PCP | Unavailable | + +------+ + Encounter Details +--------+ + + + + | Date | Type | Department | Care Team | Description | +--------+ + + + + | 11/13/ | Hospital | [facility] | Evin Armstrong, | | | 2011 | Encounter | MED CTR EMERGENCY | MD [address] | | | | | [place] [address] | [facility] | | | | | [place], [place] | [place] [address] | | | | | [address] | [phone] | | | | | [phone] | | | +--------+ + + + [...] encounter ED Notes Evin Armstrong MD - 11/14/2011 6:47 PM PDTDATE: 11/14/2011 IDENTIFICATION: This is a 31-year-old female. CHIEF COMPLAINT: Back pain. HISTORY OF PRESENT ILLNESS: This patient was doing some lifting and twisted between 2 crate s and twis maciel her back and has pain in her lower back. This happened yesterday. Now she is getting this pulsati ng pain that goes down her back and to her knees, both legs. No incon tinence of bowel or bladder, no urinary retention. She says it hurts to walk, but her legs are strong. She has had back trouble befor e, in 2004, a similar type injury. PAST MEDICAL HISTORY: Tympanostomy tubes, nose surgery, bipolar disorder, anxiety, depressi on. MEDICATIONS 1. Effexor. 2. Prazosin. 3. Ativan. 4. Lamictal. 5. Motrin. ALLERGIES: NONE REPORTED. SOCIAL HISTORY: She is giving her own history. Does shipping and receiving material handler work. [facility] REVIEW OF SYSTEMS MUSCULOSKELETAL: Low back pain. NEUROLOGICAL: The pain radiates into both legs to the knee level. All other systems are reviewed and found negative. PHYSICAL EXAMINATION VITAL SIGNS: Blood pressure 112/67, pulse 66, respirations 16, temperature 98.6, saturation 96% on ro om air. GENERAL: This is a well-nourished 31-year-old female. HEENT: No trauma. Pupils equal. NECK: Supple, nontender. HEART: Regular rate and rhythm. LUNGS: Clear to auscultation. ABDOMEN: Soft, nontender. EXTREMITIES: Warm and well perfused without edema. Good range of motion. No joint swelling or deformi ty. BACK: Paraspinal tenderness in the lumbosacral area. No crepitus or deformity. No costovert ebral angl e tenderness over the kidneys. NEUROLOGIC: She is alert, interactive, good muscle tone and strength. Her speech is clear. Gait is no rmal. EMERGENCY DEPARTMENT COURSE: The patient was seen and examined shortly after arriving in [facility] department. History and physical were obtained. Vital signs were noted. This p atient has an acute l umbar strain. I am going to give her a dose Robaxin. Outpatient treat ment is indicated and she will b e able to be discharged, to follow up with her primary car e provider. IMPRESSION ACUTE LUMBAR STRAIN. PLAN: The patient will be discharged home. I am going to prescribe some Robaxin, a little b it of Norc o for a few days. She can continue ibuprofen. She needs to have no lifting over 10 pounds for 2 weeks . Follow up with her primary care provider. Return immediately if she worsens or other concerns devel op. DICTATED BY: Evin Armstrong MD Emergency Medicine JOB #: [id number] EXT JOB #:[id number] <Electronicall y Signed by Evin Armstrong MD> 11/15/111948 documented in this encounter Plan of Treatment Not on filedocumented as of this encounter Visit Diagnoses Not on filedocumented in this encounter"
--- OUTSIDE RECORDS SUMMARY | ~2019-12-30 | XMS | Encounter Summary ---
Demographics + + + | Address | [address] | | | [place] [address] | + + + | Home Phone | | + + + | Preferred Language | Unknown | + + + | Marital Status | | + + + | Amish Affiliation | Unknown | + + + | Race | White | + + + | Ethnic Group | Not or | + + + Author + + + | Author | [facility] | | | and [place] | + + + | Organization | [facility] | | | [...] [place], | | | | | [place] [address] | | + + + + + Care Team Providers + +------+ + | Care [employer] Ground Operations Supervisor Name | Role | Phone | + +------+ + | Duarte Jason MD | PCP | Unavailable | + +------+ + Encounter Details +--------+ + + + + | Date | Type | Department | Care Team | Description | +--------+ + + + + | 03/31/ | Emergency | [facility] | No, Physician p | Patient left without | | 2015 | | [facility] | | being seen (Primary | | | | CENTER [address] | | Dx) | | | | [place] | | | | | | [address] | | | | | | [phone] | | | +--------+ + + + [...] as of this encounter Plan of Treatment + +------+--------+ + + | Name | Type | Priori | Associated Diagnoses | Date/Time | | | | ty | | | + +------+--------+ + + | ED INFORMATION | BALAJI | Routin | | 08/02/2015 6:02 PM | | EXCHANGE | | e | | PDT | + +------+--------+ + + documented as of this encounter Procedures + +--------+ + + + | Procedure Name | Priori | Date/Time | Associated Diagnosis | Comments | | | ty | | | | + +--------+ + + + | ED INFORMATION | Routin | 08/02/2015 | | | | EXCHANGE | e | 6:02 PM | | | | | | PDT | | | + +--------+ + + + documented in this encounter Visit Diagnoses + + | Diagnosis | + + | Patient left without being seen - Primary Surgical or other procedure not carried out | | because of patient's decision | + + documented in this encounter"
--- OUTSIDE RECORDS SUMMARY | ~2019-12-30 | XMS | Encounter Summary ---
Demographics + + + | Address | [address] | | | [place] [address] | + + + | Home Phone | | + + + | Preferred Language | Unknown | + + + | Marital Status | | + + + | Mandaen Affiliation | Unknown | + + + [...] [place], | | | | | [place] [address] | | + + + + + Care Team Providers + +------+ + | Care Power Chisel Operator Name | Role | Phone | + +------+ + | No, Physician | PCP | Unavailable | + +------+ + Reason for Visit + + + | Reason | Comments | + + + | Back Injury | OM 10/20/12. Follow-up. RM 1 | + + + Encounter Details +--------+---------+ + + + | Date | Type | Department | Care Team | Description | +--------+---------+ + + + | 11/17/ | Office | [facility] | Mariela Vela | Lumbar strain | | 2012 | Visit | CARE [address] | MD [address] | (Primary Dx); Place | | | | [place], [place] | [address] | of occurrence, | | | | [address] | [place] [address] | industrial places | | | | [phone] | [phone] | and premises; | | | | | | Civilian activity | | | | | | done for income or | | | | | | pay | +--------+---------+ + + + Social History [...] + + + | Blood Pressure | 110/80 | 11/17/2012 12:36 PM | | | | | PDT | | + + + + + | Pulse | 70 | 11/17/2012 12:36 PM | | | | | PDT | | + + + + + | Temperature | 36.8 C (98.2 F) | 11/17/2012 12:36 PM | | | | | PDT | | + + + + + | Respiratory Rate | 18 | 11/17/2012 12:36 PM | | | | | PDT | | + + + + + | Oxygen Saturation | 97% | 11/17/2012 12:36 PM | | | | | PDT | | + + + + + | Inhaled Oxygen | - | - | | | Concentration | | | | + + + + + | Weight | 78.5 kg (173 lb) | 11/17/2012 12:36 PM | | | | | PDT | | + + + + + | Height | 162.6 cm (5' 4") | 11/17/2012 12:36 PM | | | | | PDT | | + + + + + | Body Mass Index | 29.7 | 11/17/2012 12:36 PM | | | | | PDT | | + + + + + documented in this encounter Progress Notes Mariela Vela MD - 11/17/2012 2:48 PM PDTSee dictation #[id number] cony d by Mariela Vela MD at 11/17/2012 2:48 PM PDTWaring, Mariela Zhang MD - 11/17/2012 12:00 AM PDT , URGENT CARE NOTE EMPLOYER: [employer] GUARANTOR: LINDSAY DATE OF INJURY: 10/20/2012 CLAIM NUMBER: [id number] CHIEF COMPLAINT: Back pain. SUBJECTIVE: The patient is a 32-year-old female who presents to urgent care today for follo wup of low back pain. She was originally seen and evaluated 10/21/2012, for initiation of c laim after developing back pain with standing upright. At that time she was treated with mu scle relaxers and put on modified duty. She was seen in followup 11/03/2012. At that time s he was not improving. She was placed on a Medrol Dosepak as well as given some Robaxin and continued on light duty. She states up until that point her pain had been relatively unchan ged and the addition of the new medications had made no difference in her pain. She still n otes pain in the low back with radiation to the anterior bilateral thighs. She also notes a numb and tingling feeling at the tips of all the toes on both feet, and a numb, tingly fee ling on the anterior aspects of the proximal lower leg just below the knee on both legs. Lane loredo states her pain became so severe yesterday that she was seen in the emergency department. We do have records from the emergency department at [facility], which we re reviewed. At that time she had a urinalysis, CBC and CMP, all of which were negative. Lane loredo was given an injection of Toradol, given oral Toradol tablets, and was released with vargas mmended followup in 1 to 2 days. She states overall her pain has been unchanged throughout all of the treatments. She states her normal job duties, even with light duty, are very min imal. She seems to feel very uncomfortable at work and feels that the types of repetitive m ovements that she does aggravate her back. She states her normal job duties she does not metzger ve to lift, push or pull more than 5 pounds, but does a lot of repetitive twisting and reac teresa type of activities and it is these types of activities that seem to aggravate her back more. She states there are other duties at work that do not require this and do not seem t o bother her back as much. Because of this, she has had to call in to work because she does not feel that she can perform her normal functions. She has had no fevers or chills, no ch yumiko in her pain or neurologic complaints, has had no bowel or bladder incontinence, no uri nary symptoms, and no weakness of the lower extremities. OBJECTIVE VITAL SIGNS: Blood pressure 110/80, pulse 70, respirations 18, temperature 98.2. O2 saturat ion 97% on room air. Weight 173 pounds, height 5 feet 4 inches. Pain is 5/10 on a pain scal e. GENERAL: Well-developed, well-nourished female in no apparent distress, pleasant and co operative. BACK: No vertebral point tenderness, crepitus or step-off. No CVA tenderness with percussio n. Mild tenderness with palpation over the paravertebral muscles of the bilateral L/S back. Forward flexion is limited to approximately 30 degrees because of pain. She will not exten d for fear of pain. She notes contralateral pain with lateral flexion. NEURO: Motor streng th 5/5 bilateral lower extremities. DTRs 2+/4 bilateral lower extremities. Sensation is rachel ssly intact to light touch of the bilateral lower extremities. Distal pulses are 2+/4 bilat erally. Gait is steady and symmetric and nonantalgic. ASSESSMENT AND PLAN LUMBAR STRAIN/SPRAIN. I have recommended that we modify her duties at work more significantly, continue her curre nt medications and follow up as scheduled. She does already have a followup appointment libby Vela, Occupational Medicine, 11/22/2012. She is released to modified duty, to avoid lifting, pushing/pulling greater than or equal to 10 pounds, to avoid prolonged standing a nd/or sitting for longer than 1-2 hours without at least a 5-10 minute break, be allowed to change positions as needed for comfort and to avoid twisting and reaching types of activit ies. It is also recommended she limit kneeling, stooping and climbing and decrease bending or squatting to less than or equal to 50% of the duty day. She will follow up as previously noted, return sooner for further problems, questions, or concerns. Mariela Vela MD NAVARRO / CHARISSE JOB #: [id number] signed by Mariela Vela MD at 11/20/2012 8:02 AM PDTdo cumented in this encounter Miscellaneous Notes Plan of Care - [facility] - 11/17/2012 12:00 AM PDT lan of Care - [facility] - 11/15/2012 12:00 AM PDTElect ronically signed by Chuck Quinones at 12/09/2012 11:28 AM PDTdocumented in this encounter Plan of Treatment Not on filedocumented as of this encounter Visit Diagnoses + + | Diagnosis | + + | Lumbar strain - Primary Sprain of lumbar region | + + | Place of occurrence, industrial places and premises | + + | Civilian activity done for income or pay | + + documented in this encounter
== END 2019-12-30 06:58 | disposition home or self-care (01) ==
LOC: ED 06:30
DX: M79.641 Pain in right hand (principal)
CPT/HCPCS: 99283